=== PATIENT | female | born 1935 | race Caucasian/White ===

== ENCOUNTER 2023-12-20 08:00 | Outpatient (AMB) | payer MEDICARE, MEDICAID, SELFPAY ==
[2023-12-20 08:07] VITALS: BP 134/76; PULSE 87; O2SAT 96
--- NOTE | 2023-12-20 08:07 | MHC.OFFWIV ---
Intake Vital Signs 12/20/23 08:07 Height 4 ft 11 in BP 134/76 Blood Pressure Location Lt brachial Position Sitting Pulse 87 Pulse Source Pulse Oximeter Pulse Oximetry (%) 96 Oxygen Delivery Method Room Air Intake Visit Reasons: EP back Pain Intake Note: pt is here for back pain on the L side. Patient Tobacco Use Status: Former Tobacco user Quit Date: 1998 Allergies No Known Allergies Allergy (Verified 12/20/23 08:18) Medication List - Last Reconciled 12/20/23 by MAGDALENA Martinez atorvastatin 10 mg PO DAILY bupropion HCl XL 150 mg PO DAILY cyanocobalamin (vitamin B-12) 1,000 mcg PO DAILY levothyroxine 50 mcg PO DAILY lisinopril 10 mg PO DAILY metronidazole 1% 1 appl topical DAILY omeprazole 20 mg PO DAILY prednisone prednisone 5 mg: take 8 tablets (40 mg) on Day 1; 7 tablets (35 mg) on Day 2; then decrease by 1 tablet every day until finished PO Do you need a note to return to daycare/school/sports/work: No HPI HPI Comments History of Present Illness Details 88-year-old female presents today complaining of left-sided low back pain the last 2 or 3 days. Denies any particular injury or trauma to the area. She has had similar episodes that were diagnosed from hip and back pain. She denies any dysuria urgency frequency. The patient presents today with her daughter who is her central office operator supervisor. [facility] Medical History Acid reflux High blood pressure High cholesterol Hypoactive thyroid Social History Patient Tobacco Use Status: Former Tobacco user Quit Date: 1998 Advance Directives Date on File: 12/18/21 Current occupational status: retired Current occupation: rt hand Review of Systems Const All systems reviewed & are unremarkable except as noted in HPI and below Physical Exam Vital Signs: Last Vital Signs Pulse 87 12/20/23 08:07 BP 134/76 12/20/23 08:07 Pulse Ox 96 12/20/23 08:07 Oxygen Delivery Method Room Air 12/20/23 08:07 Const General: comfortable and no acute distress HEENT Head: Yes normal to inspection, Yes normocephalic and Yes atraumatic Ears: hearing grossly normal bilaterally General nose exam: Normal external nose present Resp Effort & Inspection: normal respiratory effort Auscultation: clear to auscultation bilaterally Cardio Rate: regular rate Rhythm: regular rhythm General: Yes no CVA tenderness Back/Spine/Pelvis Back: no CVA tenderness Thoracic/Lumbar Spine: paraspinal muscle tenderness on the left Results AMB Urinalysis, Automated UA Leukoctes 0 Dillon/uL Last Edit by MELITON Webber on 12/20/23 08:21 UA Nitrite Negative Last Edit by MELITON Webber on 12/20/23 08:21 UA Urobilinogen 0.2 mg/dL Last Edit by MELITON Webber on 12/20/23 08:21 UA Protein 30 mg/dL Last Edit by MELITON Webber on 12/20/23 08:21 UA pH 5.5 Last Edit by MELITON Webber on 12/20/23 08:21 UA Blood 0 Yobani/uL Last Edit by MELITON Webber on 12/20/23 08:21 UA Specific [place] 1.020 Last Edit by MELITON Webber on 12/20/23 08:21 UA Ketone Negative Last Edit by MELITON Webber on 12/20/23 08:21 UA Bilirubin 1 mg/dL Last Edit by MELITON Webber on 12/20/23 08:21 UA Glucose 0 mg/dL Last Edit by MELITON Webber on 12/20/23 08:21 Results Reviewed Results Reviewed: Laboratory Last Values Urine pH (Auto) 5.5 12/20/23 08:19 Specific [place] (Auto) 1.020 12/20/23 08:19 Urine Protein (Auto) 30 mg/dL 12/20/23 08:19 Glucose (UA)(Auto) 0 mg/dL 12/20/23 08:19 Urine Ketones (Auto) Negative 12/20/23 08:19 Urine Blood (Auto) 0 [place]obani/uL 12/20/23 08:19 Urine Nitrite (Auto) Negative 05/07/24 08:19 Urine Bilirubin (Auto) 1 mg/dL 12/20/23 08:19 Urine Urobilinogen (Auto) 0.2 mg/dL 12/20/23 08:19 Leukocyte Esterase (Auto) 0 Dillon/uL 12/20/23 08:19 Urinalysis in the office today was negative and this was discussed with the patient and the patient's daughter Assessment & Plan Assessment & Plan (1) Spasm of lumbar paraspinous muscle: Code(s): M62.830 - Muscle spasm of back Plan: The patient did very well on a Medrol Dosepak with a similar complaint. This was requested by the daughter. This was prescribed and the side effects was discussed with the patient and with the daughter. Patient will follow up with her PCP Plan see plan Orders: Orders AMB Urinalysis Automated 12/20/23 NERY [place] Z13.9 - Encounter for screening, unspecified Medications: New prednisone prednisone 5 mg: take 8 tablets (40 mg) on Day 1; 7 tablets (35 mg) on Day 2; then decrease by 1 tablet every day until finished PO 36 ea 0RF MAGDALENA Martinez Coding Level of Care Code Est Pt Level 3 (02223) Diagnoses Spasm of lumbar paraspinous muscle M62.830
== END 2023-12-20 09:14 | disposition home or self-care (01) ==
PROVIDERS: PCP Internal Medicine; Visit Provider Physician Assistant Medical
DX: M54.50 Low back pain, unspecified (principal)
CPT/HCPCS: 81003; 99213

== ENCOUNTER 2024-03-21 11:32 | Inpatient (IN) | payer MEDICARE, MEDICAID, SELFPAY ==
--- NOTE | ~2024-03-21 | CT_ITS ---
EXAMINATION: CT ANGIOGRAM HEAD CT ANGIOGRAM NECK CLINICAL INFORMATION: slurred speech, R sided deficits COMPARISON: Same day CT head. Unable to view prior in PACS at time of dictation TECHNIQUE: Test bolus sequences followed by intravenous administration 70 mL of Omnipaque. Helical imaging was performed in the axial plane from the aortic arch to the skull vertex. Delayed postcontrast imaging of the head was also performed. The data was processed at the generation technologist's workstation for generation of MIP sequences. Angled MIPs and volume rendered reformatted images were also generated at an offline 3D workstation. Stenoses are assessed in accordance with Olivarez et al. Quantification of Carotid Stenosis on CT Angiography. AJR 2006. 27(1):13-19. [address] CT examination was performed using dose optimization techniques as appropriate, variously including the following: *Automated exposure control *Adjustment of mA and/or kV according to patient size (this includes techniques or standardized protocols for targeted exams where dose is matched to indication/reason for exam; i.e. extremities or head) *Use of iterative reconstruction technique DLP: 1453.42 mGy-cm FINDINGS: CT HEAD: Age-indeterminate though chronic appearing cortical/subcortical infarcts within the high left middle frontal gyrus and left parietal postcentral gyrus as well as age indeterminate lacunar infarcts in the right and possibly also left cerebellar hemispheres. No acute intracranial hemorrhage. Additionally, extensive white matter disease presumably reflective of chronic microangiopathy limits assessment for superimposed acute ischemia. No extra-axial fluid collection. No mass lesion, significant mass effect, or herniation pattern. No pathologic intra-axial enhancement or regional oligemia. Lens replacements. Mucoperiosteal thickening of the sphenoid sinuses compatible with chronic sinusitis. Right mastoid tip effusion. Osseous structures are intact. CTA HEAD: No hemodynamically significant stenosis or occlusion in the anterior or posterior circulation. Patchy calcific plaque along the carotid siphons without stenosis. Incidental AYAAN trifurcation, a normal anatomic variant. No aneurysms and no high flow vascular malformations. Timing of the contrast bolus allows assessment of the major dural venous sinuses, which all opacify normally CTA NECK: Classic 3 vessel branching pattern of the aortic arch. Moderate partially calcified atherosclerotic plaque of the aortic arch and great vessel origins. Nondiagnostic assessment of the great vessel origins due to beam hardening artifact from adjacent venous contrast bolus. The common carotid arteries are widely patent with punctate calcific plaque on the right. Retropharyngeal course of the common carotid arteries. Trace atherosclerosis of the right carotid bifurcation without stenosis. The left carotid bifurcation is normal. Widely patent internal carotid arteries pharyngeal course of portions of the bilateral internal carotid arteries and left external carotid artery. The vertebral arteries are codominant . Calcific plaque mildly narrows the right vertebral artery origin with widely patent left vertebral artery origin. Both vertebral arteries are widely patent throughout their extracranial cervical course. CT NECK: Enlargement of the main pulmonary artery which may be seen in the setting of pulmonary hypertension. Multiple carious teeth. Diffuse osseous demineralization. Multilevel cervical spondylosis. Atrophy of the right and to a lesser extent partially imaged left rotator cuff musculature compatible with chronic insertional tearing. 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 CT/CT angio head neck stroke IMPRESSION: 1. Age-indeterminate though chronic appearing cortical/subcortical infarcts within the high left middle frontal gyrus and left parietal postcentral gyrus as well as age indeterminate lacunar infarcts in the right and possibly also left cerebellar hemispheres. No acute intracranial hemorrhage. An addendum may be issued upon request once prior imaging becomes available in PACS for comparison. 2. No large vessel occlusion or flow-limiting stenosis within the intracranial or cervical vasculature. 3. Enlargement of the main pulmonary artery which may be seen in the setting of pulmonary hypertension. 4. Multiple carious teeth can be correlated with dental examination. 5. Atrophy of the right and to a lesser extent partially imaged left rotator cuff musculature compatible with chronic insertional tearing. 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 This critical result was discussed with Amanda Mathews MD at 1:41 PM on 03/21/2024 and it was ascertained that the content and urgency of the report was understood at the time of direct communication.
--- NOTE | ~2024-03-21 | MR_ITS ---
MRI OF THE BRAIN WITHOUT IV CONTRAST INDICATION: CVA. COMPARISON: Head CT and CTA head and neck March 21, 2024. TECHNIQUE: Multiplanar multisequence MR imaging of the brain was obtained without IV contrast. FINDINGS: There is no hydrocephalus, extra-axial surface collection, or herniation. The major flow voids at the skull base are preserved. There is a small acute infarct involving the right frontal lobe including a portion of the right precentral gyrus extending to the right operculum in the right MCA territory. There is no significant mass effect and there is no hemorrhagic transformation. There is global cerebral volume loss and there is advanced chronic microangiopathy. Chronic infarcts within the left frontal and left parietal lobes. Chronic lacunar infarcts within the cerebellar hemispheres bilaterally. There is no intracranial hemorrhage on the gradient recalled echo acquisition. Empty sella. The cerebellar tonsils are normally positioned. The cerebellum and brainstem are normal. The craniocervical junction is normal. Osseous marrow signal intensity is homogenous. The visualized soft tissues are unremarkable. There is a right mastoid effusion. There is mild mucosal thickening throughout the ethmoid air cells bilaterally and within the left sphenoid sinus. MR/MR head/brain wo con IMPRESSION: * This is a limited motion degraded MRI of the brain. * There is a small acute infarct involving the right frontal lobe including a portion of the right precentral gyrus extending to the right operculum in the right MCA territory. There is no significant mass effect and there is no hemorrhagic transformation. * There is global cerebral volume loss and there is advanced chronic microangiopathy. Chronic infarcts within the left frontal and left parietal lobes. Chronic lacunar infarcts within the cerebellar hemispheres bilaterally. * Empty sella.
--- NOTE | ~2024-03-21 | CT_ITS ---
EXAMINATION: CT HEAD WITHOUT CONTRAST (STROKE PROTOCOL) CLINICAL INFORMATION: Stroke protocol. Right-sided deficits. COMPARISON: None available. TECHNIQUE: Contiguous axial imaging was performed from the skull base to vertex without intravenous administration of contrast. This CT examination was performed using dose optimization techniques as appropriate, variously including the following: *Automated exposure control *Adjustment of mA and/or kV according to patient size (this includes techniques or standardized protocols for targeted exams where dose is matched to indication/reason for exam; i.e. extremities or head) *Use of iterative reconstruction technique DLP: 677 mGy-cm FINDINGS: There is extensive deep white matter gliosis noted. Prominence to the sulci and ventricles noted. No intra or extra-axial fluid collection, hemorrhage, mass, or mass effect. Mild mucoperiosteal thickening seen in the sphenoid sinus. CT/CT head for stroke IMPRESSION: No acute intracranial pathology. Results will be telephoned in by the PSA, to the emergency room.
--- NOTE | 2024-03-21 11:41 | ECG_ITS ---
Test Reason : STROKE Blood Pressure : / mmHG Vent. Rate : 071 BPM Atrial Rate : 071 BPM P-R Int : 160 ms QRS Dur : 088 ms QT Int : 410 ms P-R-T Axes : 070 012 091 degrees QTc Int : 445 ms Normal sinus rhythm Nonspecific T wave abnormality Abnormal ECG When compared with ECG of 17-MAR-2016 16:14, Nonspecific T wave abnormality now evident in Lateral leads Referred By: Amanda Mathews Electronically Signed By:MARCELINA CEJA MD
[2024-03-21 11:44] VITALS: BP 150/86; BP 162/103; PULSE 81; PULSE 84; RESP 18; TEMP 36.5; O2SAT 94; O2SAT 96; BMI 26.9
[2024-03-21 11:49] LABS: Glucose, Whole Blood 155 mg/dL (60-115)
[2024-03-21 11:51] LABS: Prothrombin Time Whole Bld POC 11.9 sec (11.1-13.5)
--- NOTE | 2024-03-21 11:57 | ED_ITS ---
HPI - Neuro Symptoms/Deficit General Chief Complaint: Stroke Stated Complaint: SLURRED SPEECH, R ARM DRIFT, LKW 03/20 19:14 Source: patient, EMS and old records reviewed Mode of arrival: EMS Limitations: altered mental status History of Present Illness ED Provider: DWIGHT MIN Narrative: 88 yo female with HLD, HTN, hypothyroidism, GERD here with c/o going to bed around 830pm then waking up confused, slurred speech and R side feels weak. She denies headache, trauma, falls, fevers. She woke up like this at 7am. She is confused on arrival and EMS notes her daughter was at home and confirmed timing. She is not on blood thinners. Last Observed Normal: 21:00 Location: speech, right face and right arm History of same: No Severity: mild Quality: weak Relieving factors: none Exacerbating factors: none Context: other (woke with symptoms) On Anticoagulants: No Associated symptoms: weakness Treatments Prior to Arrival: none Related Data Home Medications ?Medication ?Instructions ?Recorded ?Confirmed atorvastatin 10 mg tablet 10 mg PO DAILY 05/20/20 12/20/23 bupropion HCl 150 mg 24 hr tablet, 150 mg PO DAILY 05/20/20 12/20/23 extended release levothyroxine 50 mcg tablet 50 mcg PO DAILY 05/20/20 12/20/23 lisinopril 10 mg tablet 10 mg PO DAILY 05/20/20 12/20/23 omeprazole 20 mg capsule,delayed 20 mg PO DAILY 05/20/20 12/20/23 release cyanocobalamin (vitamin B-12) 1,000 mcg PO DAILY 12/18/21 12/20/23 1,000 mcg tablet Previous Rx's ?Medication ?Instructions ?Recorded metronidazole 1 % topical gel 1 appl topical DAILY #60 grams 03/26/23 prednisone 5 mg tablets in a dose See Rx Instructions PO .COMPLEX 12/20/23 pack #37 ea Allergies Allergy/AdvReac Type Severity Reaction Status Date / Time tramadol Allergy Rash Verified 03/21/24 12:01 Review of Systems 2 Review of Systems: Constitutional : No Fever, No Chills, No Fatigue ENT/Mouth : No sore throat, No Rhinorrhea Eyes: No Eye Pain, No Swelling, No Redness Cardiovascular : No Chest Pain, No SOB, No Dyspnea on Exertion Respiratory : No Cough, No Sputum Gastrointestinal : No Nausea, No Vomiting, No Diarrhea, No abdominal Pain Genitourinary : No Dysuria, No Urinary Frequency, No Hematuria, Musculoskeletal : No joint pain, No Myalgias, No Joint Swelling Skin : No Skin Lesions, No rash Neuro : pos Weakness, No Numbness, No Dizziness, no Headache Psych : No Anxiety/Panic, No Depression Heme/Lymph: No Bruising, No Bleeding,No Lymphadenopathy Endocrine : No Polyuria, No Polydipsia All other systems reviewed and are negative [facility] Past Medical History Attestation statement: The following information was validated with the patient. Source: old records reviewed Medical History Hypoactive thyroid High cholesterol High blood pressure Acid reflux Social History Social History Patient Tobacco Use Status: Former Tobacco user Advance Directives: Yes Advance Directives on File: Yes Advance Directives Date on File: 12/18/21 Current occupational status: retired Current occupation: rt hand Physical Exam 2 Vital Signs: Vital Signs: Last Vital Signs Temp 97.7 F 03/21/24 13:39 Pulse 79 03/21/24 13:39 Resp 20 03/21/24 13:39 BP 162/87 H 03/21/24 13:39 Pulse Ox 100 03/21/24 13:39 O2 Del Method Room Air 03/21/24 13:39 BMI result Body Mass Index 26.9 Appearance: Alert. Oriented X to person and place. No acute distress. Eyes: Pupils equal, round and reactive to light. ENT: Pharynx normal. Neck: Normal inspection. Neck supple. CVS: Normal heart rate and rhythm. Pulses normal. Respiratory: No respiratory distress. Breath sounds normal. Abdomen: Soft and non-tender. Skin: Skin warm and dry. pale skin color. Normal skin turgor. Extremities: No lower extremity edema. No calf ttp Neuro: Oriented X 2. R arm weakness 4+/5, slurred speech, mild R facial droop. Medications Administered Discontinued Medications Generic Name Dose Route Start Last Admin Trade Name Freq PRN Reason Stop Dose Admin Iohexol 100 ml 03/21/24 12:59 03/21/24 13:00 Iohexol 350 Mg/Ml 100 Ml Infus..Btl IV 03/21/24 13:00 70 ml ONCE ONE Administration Medical Decision Making Medical Decision Making [facility] Narrative: 88 yo female with HLD, HTN, hypothyroidism, GERD here with c/o R sided deficits and slurred speech last known well at 830/9pm yesterday. She is not on thinners. At this time waiting on CTA given hx of mild CKD - not a candidate for TNK given out of window but will get CTA for LVO. No trauma reported. Will need admission pending CTA Differential Diagnosis Differential Diagnoses: The differential diagnosis associated with the presentation includes CVA, UTI Admission/Observation Consideration of admission/observation: Escalation of care including admission/observation considered admit for stroke work up aspirin ordered Consult Healthcare Provider Management of the patient was discussed with: Hospitalist (will admit) Lab Data [facility] Lab Attestation statement: I reviewed the patient's lab results. 03/21/24 12:06 03/21/24 12:06 Labs: Lab Results 03/21/24 03/21/24 03/21/24 Range/Units 11:46 11:47 12:06 WBC 6.2 (4.8-10.8) X10*3/uL RBC 3.89 L (4.20-5.50) X10*6/uL Hgb 12.7 (12.0-16.0) g/dl Hct 38.3 (37.0-47.0) % MCV 98.5 H (80.0-98.0) fL MCH 32.6 (27.0-33.0) pg MCHC 33.2 (31.0-35.0) g/dl RDW 12.6 (11.0-16.0) % Plt Count 159 L (160-400) X10*3/uL MPV 9.5 (9.4-12.3) fL Immature Gran % (Auto) 0.2 (0.0-0.4) % Neut % (Auto) 65.1 (45-73) % Lymph % (Auto) 19.2 L (20-40) % [place] % (Auto) 10.1 (2-11) % Eos % (Auto) 4.8 H (0-4) % Baso % (Auto) 0.6 (0-2) % Lymph # (Auto) 1.2 (1.2-4.9) X10*3/uL [place] # (Auto) 0.6 (0.1-1.2) X10*3/uL Eos # (Auto) 0.3 (0.0-0.4) X10*3/uL Baso # (Auto) 0.0 (0.0-0.2) X10*3/uL Abs Immat Gran (auto) 0.01 (0.00-0.03) X10*3/uL Absolute Neuts (auto) 4.0 (2.0-8.3) x10*3/uL Absolute Nucleated RBC 0.000 (0.0-0.012) X10*3/uL Nucleated RBC % (auto) 0.0 (0.0-0.2) /100WBC PT 11.2 (11.1-13.3) SEC Whole Blood PT 11.9 (11.1-13.5) sec INR 0.9 (0.9-1.1) Whole Blood INR 1.0 (0.9-1.1) Sodium 141 (135-145) mmol/L Potassium 4.0 (3.3-5.1) mmol/L Chloride 110 H (96-108) mmol/L Carbon Dioxide 23 (22-29) mmol/L Anion Gap 12 (12-20) BUN 30 H (9-16) mg/dL Creatinine 1.33 (0.5-1.4) mg/dL Estim Creat Clear Calc 27.7 Estimated GFR 38 POC Glucose 155 H (60-115) mg/dL Random Glucose 138 H (60-115) mg/dL Estimat Average Glucose 117 mg/dL Hemoglobin A1c % 5.7 (<6.0) % Calcium 9.1 (8.4-10.2) mg/dL Magnesium 2.0 (1.6-2.6) mg/dL Total Bilirubin 0.4 (0.0-1.0) mg/dL Direct Bilirubin 0.1 (0.0-0.5) mg/dL AST 13 (5-31) U/L ALT 7 (0-31) U/L Alkaline Phosphatase 112 (39-117) U/L Troponin I High Sens 17.6 H (<3.5-17.0) ng/L Total Protein 5.9 L (6.5-8.0) g/dL Albumin 3.5 (3.5-5.0) g/dL Triglycerides 82 (<150) mg/dL Cholesterol 151 (<200) mg/dL LDL Cholesterol, Calc 75 (<100) mg/dL HDL Cholesterol 60 (>40) mg/dL TSH 1.29 (0.32-4.0) uIU/mL Independent Interpretation I performed an independent interpretation of an: EKG and CT Scan (no ICH) Interpretation: Rate: 71 Rhythm: NSR [place]: normal Normal P waves. Normal WERNER. Normal QRS complex. ST T wave : flat t waves I and aVL, no JALEN qTC: 445 prior studies: no acute ischemia The study has been interpreted contemporaneously by me. . Radiology Impression Discussion of test interpretation with radiology: I discussed test interpretation with the radiologist and I have reviewed the radiologist's reading. Radiologist Impression: chronic infarcts no LVO 140pm Independent Historian Clinical information obtained from an independent historian. History obtained from or confirmed by: EMS External Record Review External record reviewed: Inpatient record NIH Stroke Scale Internal: Initial- Upon Arrival Level of Consciousness: Alert Level of Consciousness Questions: Answers one question correctly Level of Consciousness Commands: Performs both tasks correctly Best Gaze: Normal Visual: No visual loss Facial Palsy: Minor paralyis Motor Arm (Right): Drift Motor Arm (Left): No drift Motor Leg (Right): No drift Motor Leg (Left): No drift Limb Ataxia: Absent Sensory: Normal Best Language: No aphasia Dysarthia: Mild to moderate dysarthria Extinction and Inattention: No abnormality Score: 4 Critical Care Time Critical Care Time Critical Care Time: Yes Total Critical Care Time: 45 Attestation: review of records, stroke protocol, admission I attest to this time spent taking care of the patient Discharge Plan Discharge Clinical Impression: Dysarthria, Right sided weakness Patient Disposition: Admitted As Inpatient Prescriptions: No Action prednisone 5 mg tablets,dose pack See Rx Instructions PO .COMPLEX Qty: 37 0RF Rx Instructions: prednisone 5 mg: take 8 tablets (40 mg) on Day 1; 7 tablets (35 mg) on Day 2; then decrease by 1 tablet every day until finished PO cyanocobalamin (vitamin B-12) 1,000 mcg Tablet 1,000 mcg PO DAILY atorvastatin 10 mg tablet 10 mg PO DAILY omeprazole 20 mg capsule,delayed release(DR/EC) 20 mg PO DAILY levothyroxine 50 mcg tablet 50 mcg PO DAILY bupropion HCl 150 mg tablet extended release 24 hr 150 mg PO DAILY lisinopril 10 mg tablet 10 mg PO DAILY metronidazole 1 % gel 1 appl topical DAILY Qty: 60 1RF Rx Instructions: Use for 1 month Print Language: Moldovan
--- NOTE | 2024-03-21 11:57 | PC.NURSE ---
patient presents to the ED with slurred speech, states she can tell her speech is not right. patient is drooling. patient has right sided facial droop. patient is alert and oriented to self and situation and place, patient unable to state the year or month. patient has weakness on the right side hand grasp.
[2024-03-21 12:10] LABS: MANUAL DIFF FLAG NO
[2024-03-21 12:12] LABS: Basophils Percent Auto 0.6 % (0-2); Eosinophils Absolute Auto 0.3 X10*3/uL (0.0-0.4); Eosinophils Percent Auto 4.8 % (0-4); Hematocrit 38.3 % (37.0-47.0); Hemoglobin 12.7 g/dl (12.0-16.0); Imm Gran Abs Auto 0.01 X10*3/uL (0.00-0.03); Imm Gran Pct Auto 0.2 % (0.0-0.4); Lymphocytes Absolute Auto 1.2 X10*3/uL (1.2-4.9); Lymphocytes Percent Auto 19.2 % (20-40); Mean Corpuscular HGB Conc 33.2 g/dl (31.0-35.0); Mean Corpuscular Hemoglobin 32.6 pg (27.0-33.0); Mean Corpuscular Volume 98.5 fL (80.0-98.0); Mean Platelet Volume 9.5 fL (9.4-12.3); Monocytes Absolute Auto 0.6 X10*3/uL (0.1-1.2); Monocytes Percent Auto 10.1 % (2-11); Neutrophils Percent Auto 65.1 % (45-73); Platelet Count 159 X10*3/uL (160-400); Red Blood Count 3.89 X10*6/uL (4.20-5.50); Red Cell Distribution Width 12.6 % (11.0-16.0); White Blood Count 6.2 X10*3/uL (4.8-10.8)
[2024-03-21 12:28] LABS: INTERNATIONAL NORM RATIO 0.9 (0.9-1.1); Prothrombin Time 11.2 SEC (11.1-13.3)
[2024-03-21 12:35] LABS: Estimated Average Glucose 117 mg/dL; Hemoglobin A1c % 5.7 % (<6.0)
[2024-03-21 12:44] LABS: Alanine Aminotransferase 7 U/L (0-31); Albumin Level 3.5 g/dL (3.5-5.0); Alkaline Phosphatase 112 U/L (39-117); Anion Gap 12 (12-20); Aspartate Amino Transferase 13 U/L (5-31); Bilirubin Direct 0.1 mg/dL (0.0-0.5); Bilirubin Total 0.4 mg/dL (0.0-1.0); Blood Urea Nitrogen 30 mg/dL (9-16); Calcium 9.1 mg/dL (8.4-10.2); Carbon Dioxide 23 mmol/L (22-29); Chloride 110 mmol/L (96-108); Cholesterol 151 mg/dL (<200); Creatinine Clr Calc Pharmacy 27.7; Estimated Glomerular Filt Rate 38; Glucose Random 138 mg/dL (60-115); HDL Cholesterol 60 mg/dL (>40); LDL Cholesterol Calculated 75 mg/dL (<100); Sodium 141 mmol/L (135-145); Total Protein 5.9 g/dL (6.5-8.0); Triglycerides 82 mg/dL (<150); Troponin-I High Sensitivity 17.6 ng/L (<3.5-17.0)
[2024-03-21 12:57] LABS: TSH reflex Free T4 1.29 uIU/mL (0.32-4.0)
[2024-03-21] MEDS: iohexoL 350 MG/ML 100 ML INFUS..BTL IV (13:00)
[2024-03-21 13:39] VITALS: BP 162/87; PULSE 79; RESP 20; TEMP 36.5; O2SAT 100
--- NOTE | 2024-03-21 13:48 | P.HPHOSP_ITS ---
History of Present Illness Date of Service: 03/21/24 Chief Complaint: Slurred speech This is a 88-year-old female with pertinent history hypothyroidism, hypertension, gastroesophageal reflux disease, mood disorder, mixed hyperlipidemia who presents to the emergency department for evaluation of slurred speech. Patient's last known normal was 20:30 when she went to bed last night. Patient states she woke at 07:00 with slurred speech and right-sided weakness. Patient had difficulty moving her right upper extremity. Also was transiently confused. No history of CVA that she knows of. No history of CAD. No fever, chills, chest discomfort, palpitations, shortness of breath, abdominal pain, changes in urinary or bowel habits. Patient is not on any anticoagulation In the emergency department, CT head without any acute abnormality. CTA without large vessel occlusion and age indeterminate cortical/subcortical infarcts. Patient was given aspirin in the ER Review of Systems 2 Constitutional: Constitutional: Reports no additional constitutional complaints and Reports weakness Cardiovascular: Cardiovascular: Reports no additional cardiovascular complaints Respiratory: Respiratory: Reports no additional respiratory complaints Gastrointestinal: Gastrointestinal: Reports no additional gastrointestinal complaints Genitourinary: Genitourinary: Reports no additional female genitourinary complaints Neurologic: Reports Abnormal speech present and Reports weakness PMFSH Medical History Hypoactive thyroid High cholesterol High blood pressure Acid reflux Pertinent family history: Not significant due to age Social History Patient Tobacco Use Status: Former Tobacco user Advance Directives: Yes Advance Directives on File: Yes Advance Directives Date on File: 12/18/21 Current occupational status: retired Current occupation: rt hand Meds Allergies Allergy/AdvReac Type Severity Reaction Status Date / Time tramadol Allergy Rash Verified 03/21/24 12:01 Home Medications ?Medication ?Instructions ?Recorded ?Confirmed ?Last Taken ?Type atorvastatin 10 mg tablet 10 mg PO DAILY 05/20/20 12/20/23 12/18/21 History bupropion HCl 150 mg 24 hr tablet, 150 mg PO DAILY 05/20/20 12/20/23 12/18/21 History extended release levothyroxine 50 mcg tablet 50 mcg PO DAILY 05/20/20 12/20/23 12/18/21 History lisinopril 10 mg tablet 10 mg PO DAILY 05/20/20 12/20/23 12/18/21 History omeprazole 20 mg capsule,delayed 20 mg PO DAILY 05/20/20 12/20/23 12/18/21 History release cyanocobalamin (vitamin B-12) 1,000 mcg PO DAILY 12/18/21 12/20/23 12/18/21 History 1,000 mcg tablet Physical Exam 2 Vital Signs and Narrative: Vital Signs: Last Vital Signs Temp 97.7 F 03/21/24 13:39 Pulse 79 03/21/24 13:39 Resp 20 03/21/24 13:39 BP 162/87 H 03/21/24 13:39 Pulse Ox 100 03/21/24 13:39 O2 Del Method Room Air 03/21/24 13:39 BMI result Body Mass Index 26.9 Elderly female lying in bed in no distress Neck supple, no JVD Regular rate and rhythm, S1-S2 heard Regular breath sounds bilaterally, no wheezing or crackles appreciated Abdomen soft nontender, no guarding, no rigidity Patient is awake, alert and oriented to self, place, time and person, slurred speech present, mild facial droop, right upper extremity weakness present Psych: Normal mood No pedal edema Neuro: Speech: Abnormal speech present Results Labs 03/21/24 12:06 03/21/24 12:06 Labs: Laboratory Results - last 24 hr 03/21/24 03/21/24 03/21/24 11:46 11:47 12:06 MCV 98.5 H MCH 32.6 MCHC 33.2 RDW 12.6 Plt Count 159 L MPV 9.5 Immature Gran % (Auto) 0.2 Neut % (Auto) 65.1 Lymph % (Auto) 19.2 L [place] % (Auto) 10.1 Eos % (Auto) 4.8 H Baso % (Auto) 0.6 Lymph # (Auto) 1.2 [place] # (Auto) 0.6 Eos # (Auto) 0.3 Baso # (Auto) 0.0 Abs Immat Gran (auto) 0.01 Absolute Neuts (auto) 4.0 Absolute Nucleated RBC 0.000 Nucleated RBC % (auto) 0.0 PT 11.2 Whole Blood PT 11.9 INR 0.9 Whole Blood INR 1.0 Anion Gap 12 Estim Creat Clear Calc 27.7 Estimated GFR 38 POC Glucose 155 H Random Glucose 138 H Estimat Average Glucose 117 Hemoglobin A1c % 5.7 Calcium 9.1 Magnesium 2.0 Total Bilirubin 0.4 Direct Bilirubin 0.1 AST 13 ALT 7 Alkaline Phosphatase 112 Troponin I High Sens 17.6 H Total Protein 5.9 L Albumin 3.5 Triglycerides 82 Cholesterol 151 LDL Cholesterol, Calc 75 HDL Cholesterol 60 TSH 1.29 Imaging Radiologist's Impressions: Impressions Head CT 03/21/24 11:55 IMPRESSION: No acute intracranial pathology. Results will be telephoned in by the PSA, to the emergency room. Assessment and Plan (1) Dysarthria: Status: Acute (2) Right sided weakness: Status: Acute Plan This is a 88-year-old female with pertinent history hypothyroidism, hypertension, gastroesophageal reflux disease, mood disorder, mixed hyperlipidemia who presents to the emergency department for evaluation of slurred speech. #. Slurred speech with right-sided weakness: Concern for acute CVA. Will admit patient with cardiac monitoring and obtain MRI to delineate underlying anatomy. A1c and lipid panel obtained. Also obtaining echocardiogram complete workup. Initiating aspirin and high-intensity statin. Consulted Neurology, appreciate assistance. Consulting PT/OT to evaluate and treat. Stroke education. Nursing swallow screen eval #. Hypothyroidism: On Synthroid #. Hypertension: Continue home antihypertensives #. Gastroesophageal reflux disease: On PPI #. Mixed hyperlipidemia: On statin as above Med rec pending DVT prophylaxis: Lovenox Full code. Discussed with patient at bedside Admit as inpatient and will require two night minimum hospital stay for evaluation and management of likely acute CVA (as above), which is not possible in a lesser acute setting. Specialist consult pending Quality Stroke Does the patient have a stroke diagnosis?: No VTE Prior VTE?: No VTE Risk Level:: Medical - moderate - high VTE Device Contraindication: Treatment Not Indicated VTE Drug Contraindication: N/A - Med Ordered
--- NOTE | 2024-03-21 14:11 | PC.NURSE ---
patient used bed ortega, resting quietly. patient speech is becoming more clear, hand grasp on the right side remains weak. VSS
--- NOTE | 2024-03-21 14:26 | PHA.MEDREC ---
Addendum entered by Ace Randle [facility] 03/21/24 14:48: MED REC DOUBLE CHECKED BY [facility] Original Note: Pharmacy Consult ? Medication Reconciliation Pharmacy has completed the medication reconciliation. Called daughter Shawna and confirmed medications. Patient daughter was able to confirm what she is taking and states too that her mom was taking Mirabegron 20mg tab for an Overactive bladder but she has been since changed to Gemtesa 75mg daily for it now.
[2024-03-21 14:33] VITALS: PULSE 88; O2SAT 91
[2024-03-21] MEDS: Enoxaparin Sodium 30 MG/0.3 ML SYRINGE SUBCUT (15:10)
[2024-03-21] MEDS: Aspirin 81 MG TAB.CHEW PO (15:10)
[2024-03-21] MEDS: Atorvastatin Calcium 40 MG TABLET PO (20:31)
--- NOTE | 2024-03-21 20:35 | PC.NURSE ---
assumed care of pt at 1900 - pt resting comfortably on stretcher in no apparent distress, A&Ox3, answering questions appropriately, ambulates using walker and one staff nearby assist to and from BR. worklist updated, neuros intact. bedtime med given per oct, pt swallowed whole w/ water no issues. call newman within reach, plan of care ongoing.
[2024-03-21 20:41] LABS: Appearance Urine Clear; Color Urine Yellow; Glucose Urine UA Negative (Negative); Leukocyte Esterase Urine Trace (Negative); Nitrite Urine Negative (Negative); PH 6.5 (5.0-9.0); Specific Gravity - Urine >= 1.030 (1.005-1.025); UMIC TRIGGER UACC YES; Urine Blood Negative (Negative); Urine Ketones Negative (Negative); Urine Protein Trace mg/dL (Neg-Trace)
[2024-03-21 20:45] LABS: Bacteria Urine None Seen (None Seen); Hyaline Casts Urine 0-2 /LPF (0-2); RBC Urine 0-2 /HPF (0-2); Squamous Epithelial Cell Urine 0-2 /HPF (0-2); WBC Urine 0-5 /HPF (0-5)
[2024-03-21 21:25] VITALS: BP 204/84; PULSE 93; RESP 16; TEMP 36.4; O2SAT 95
--- NOTE | 2024-03-21 21:25 | MHC.EDTECH ---
Patient walked to bathroom with walker and depends changed
--- NOTE | 2024-03-21 21:50 | PM.EVENT ---
Event Note Date of Service: 03/21/24 Event Note: bp 204/84, above target for permissive hypertension, will give 1 dose of labetolol 10mg iv, goal sbp 160-180 Time Spent With Patient Time: Total time managing care of this patient today ____ minutes.
[2024-03-21 22:03] VITALS: BP 197/92; PULSE 89
[2024-03-21] MEDS: Labetalol HCL 100 MG/20 ML VIAL 10 MG IVPUSH (22:03)
--- NOTE | 2024-03-21 22:08 | PC.NURSE ---
MD sol made aware of pt's high BP. Pt has no history of high BP. ordered 10mg labetalol iv, recommends SBP stay between 160-180.
[2024-03-22] VITALS (8 sets, daily range): BP systolic 149–190; BP diastolic 72–84; PULSE 68–87; RESP 16–20; TEMP 36.2–37.4; O2SAT 93–99; BMI 33.3
[2024-03-22 06:04] LABS: MANUAL DIFF FLAG NO
[2024-03-22 06:17] LABS: Basophils Percent Auto 0.5 % (0-2); Eosinophils Absolute Auto 0.3 X10*3/uL (0.0-0.4); Eosinophils Percent Auto 4.5 % (0-4); Hematocrit 38.3 % (37.0-47.0); Hemoglobin 12.6 g/dl (12.0-16.0); Imm Gran Abs Auto 0.02 X10*3/uL (0.00-0.03); Imm Gran Pct Auto 0.3 % (0.0-0.4); Lymphocytes Absolute Auto 1.2 X10*3/uL (1.2-4.9); Lymphocytes Percent Auto 19.2 % (20-40); Mean Corpuscular HGB Conc 32.9 g/dl (31.0-35.0); Mean Corpuscular Hemoglobin 31.9 pg (27.0-33.0); Mean Platelet Volume 10.2 fL (9.4-12.3); Monocytes Absolute Auto 0.6 X10*3/uL (0.1-1.2); Neutrophils Percent Auto 65.5 % (45-73); Platelet Count 161 X10*3/uL (160-400); Red Blood Count 3.95 X10*6/uL (4.20-5.50); Red Cell Distribution Width 12.5 % (11.0-16.0)
[2024-03-22 06:33] LABS: Anion Gap 15 (12-20); Blood Urea Nitrogen 25 mg/dL (9-16); Calcium 9.1 mg/dL (8.4-10.2); Carbon Dioxide 21 mmol/L (22-29); Chloride 108 mmol/L (96-108); Cholesterol 146 mg/dL (<200); Creatinine Clr Calc Pharmacy 30.4; Estimated Glomerular Filt Rate 42; Glucose Random 93 mg/dL (60-115); HDL Cholesterol 59 mg/dL (>40); LDL Cholesterol Calculated 69 mg/dL (<100); Potassium 3.9 mmol/L (3.3-5.1); Sodium 140 mmol/L (135-145); Triglycerides 94 mg/dL (<150)
--- NOTE | 2024-03-22 07:00 | CA_ITS ---
Transthoracic Echocardiogram Patient (Last, First, Middle): Candi Wright E Gender: Female Date of : 1935 Age: 88 Procedure Date: 03/22/2024 Procedure Type: Transthoracic Echocardiogram Location: ER Height: 162.56 cm Weight: 70.76 kg BSA: 1.76 m2 Heart Rate: 76 bpm BP: 176 / 81 mmHg Seafood Process Worker: TO Referring MD: Cedrick Sorenson MD Claim Processor: Luis Moore MD Symptoms: cva Study Quality: Adequate w contrast ECG Rhythm: Sinus Conclusions: - 1. Mildly reduced LV ejection fraction 45-50% with impaired relaxation filling pattern 2. Moderately dilated left atrium 3. Calcified aortic valve changes noted with mild aortic stenosis and mild aortic regurgitation 4. Moderate mitral annular calcification 5. Normal RV systolic pressure with mildly elevated right atrial pressures 6. No gross pericardial effusion Findings Procedure Information Contrast agent, definity, is being given per protocol without apparent complications. Left Ventricle Normal left ventricular cavity size. There is normal left ventricular wall thickness. The left ventricular systolic function is mildly decreased. The visually estimated ejection fraction is between 45-50%. Spectral Doppler is indicative of an impaired relaxation filling pattern. difficult to evaluate filling pressures due to heavy calcification at the mitral annulus Right Ventricle Normal right ventricular cavity size and systolic function. Atria The left atrium is moderately dilated. There is no evidence of interatrial shunt. The right atrium is likely dilated. Aortic Valve There is moderate calcification of the aortic valve. There is mild thickening of the aortic valve. There is mild aortic valve stenosis. The peak aortic velocity is 1.83 m/s with a calculated peak gradient of 13 mmHg. The mean gradient is 7 mmHg. The aortic valve area is 1.92 cm2. There is mild aortic valve regurgitation. Mitral Valve There is mild anterior and moderate posterior mitral leaflet thickening. There is moderate mitral annular calcification. There is trace mitral valve regurgitation. There is no mitral valve stenosis. Pulmonic Valve The pulmonic valve is likely normal. Tricuspid Valve Normal tricuspid valve structure. There is mild tricuspid valve regurgitation. The right ventricular systolic pressure is normal. Mildly elevated right atrial pressure. There is no evidence of pulmonary hypertension. Great Vessels All visible segments of the aorta are normal in size. The pulmonary artery was not well visualized. There is no dilatation of the ascending aorta measuring 2.80 cm. Venous The inferior vena cava is moderately dilated and collapses greater than 50% with inspiration. Pericardium/Pleural There is no evidence of pericardial effusion. Prior Study Comparison No prior study available for comparison. Measurements 2D Linear Measurements IVSd: 1.06 0.6-0.9/0.6-1.0 cm LVIDd: 4.47 3.9-5.3/4.2-5.9 cm LVIDd Index: 2.54 2.4-3.2/2.2-3.1 cm/m2 LVIDs: 3.15 2.0-3.6 cm LVPWd: 0.99 0.7-1.1 cm LA Diam: 3.50 2.7-3.8/3.0-4.0 cm LAIDs Index: 1.99 1.5-2.3 cm/m2 LV Mass: 195.37 67-162/88-224 g LV Mass Index: 111.00 43-95/49-115 g/m2 LVOT Diam: 2.00 3.0+(-)1.3 cm 2D Systolic Function EF 4C: 47.10 >55% EF 2C: 44.90 >55% EF BiP: 46.40 >55% Mitral Valve MV VTI: 0.38 MV Pk Benoit: 1.42 MV Mn Benoit: 0.79 MV Pk Grad: 8.00 MV Mn Grad: 3.00 MV Pk E: 0.70 MV PK A: 1.36 MV Decel Time: 295.00 E/A: 0.50 E'Lateral: 4.03 E'Medial: 3.15 E/E' Med: 22.20 E/E' Lat: 17.40 PHT: 86.00 MVA PHT: 2.56 MVA Continuity: 1.99 Decel Gentry: 2.38 Aortic Valve AoV Pk Benoit: 1.83 AoV Mn Benoit: 1.27 AoV VTI: 0.41 AoV Pk Grad: 13.00 Aov Mn Grad: 7.00 DARRION Cont.VTI: 1.92 AI Pk Benoit: 4.17 AI Gentry: 2.13 LVOT LVOT Pk Benoit: 1.03 LVOT Mn Benoit: 0.65 LVOT VTI: 0.24 LVOT Pk Grad: 4.00 LVOT Mn Grad: 2.00 LVOT Diam: 2.00 LVOT Area: 3.14 Diastolic Function MV Pk E: 0.70 MV Pk A: 1.36 E/A: 0.50 E'Medial: 3.15 E/E' Med: 22.20 E' Laterial: 4.03 E/E' Lat: 17.40 Right Ventricle TAPSE (mm): 22.60 TVS' Benoit: 14.40 Tricuspid Valve TR Pk Benoit: 2.51 TR Pk Grad: 25.00 RA Press: 8.00 RVSP: 33.00 Great Vessels Aorta Sinus of Valsalva: 3.00 2.0-3.5 cm Ao Asc: 2.80 2.1-3.4 cm Updated in Other Vendor System with Status of Final Luis Moore MD electronically signed on 03/22/2024 3:07:38 PM with status of Final
--- NOTE | 2024-03-22 08:50 | MHC.CM.PN ---
Patient appears confused and per Daughter/HCP/Shawna, she is forgetful at baseline. CM spoke with Shawna @ [phone] and addressed IMM with her (original will be mailed certified letter to Shawna and a copy has been placed on the chart). Patient lives in a house with Shawna and she required no services [employer]OMAT[employer]INNING LATHE [employer]TER (Shawna is interested in the Adult Foster Care Program through [facility] and CM has made a referral/tiger text to them). PT is recommending [facility] and [facility] [place] and [facility] are her top 3 choices. A referral has also been made to [facility] in case home is the ultimate plan. CM has initiated and will follow for dc planning. PCP is Dr. Yfn Roe.
--- NOTE | 2024-03-22 10:01 | PC.NURSE ---
Meds. arrieta b/c pt. is currently having an US
[2024-03-22] MEDS: Cyanocobalamin (Vitamin B-12) 1,000 MCG TABLET 1000 MCG PO (10:07)
[2024-03-22] MEDS: Omeprazole 20 MG CAPSULE.DR PO (10:07)
[2024-03-22] MEDS: Aspirin Enteric Coated 81 MG TABLET.DR PO (10:07)
[2024-03-22] MEDS: Levothyroxine Sodium 50 MCG TABLET PO (10:08)
[2024-03-22] MEDS: Atorvastatin Calcium 10 MG TABLET PO (10:08)
--- NOTE | 2024-03-22 10:08 | PC.NURSE ---
Pt. medicated per OCT.
--- NOTE | 2024-03-22 11:35 | PM.NEUROCN ---
History of Present Illness Data of Consult Service Date: 03/22/24 Primary Care Provider: Yfn Roe MD [facility] Reason for consult: Cerebral infarction 88 years old woman who came to hospital with 1 day history of difficulty speaking and facial asymmetry. She said that other people noted that and she was asked to come to hospital. There was no headache or seizure-like activity. Imaging revealed stroke and she was admitted. Now she was feeling better. Review of Systems Review of Systems: No chest pain shortness of breath or headache or seizure. [facility] Past Medical History Medical History (Updated 03/22/24 @ 11:38 by Roxy Rodriguez MD) CVA (cerebral vascular accident) Hypoactive thyroid High cholesterol High blood pressure Acid reflux Social History Social History Household Members: Children Household Members Other:: daughter Housing: House Do you presently have visiting nurse or other home services: No Patient Tobacco Use Status: Former Tobacco user Tobacco use type: Cigarette Years Smoked: 15 Second Hand Smoke Exposure: No Advance Directives Date on File: 12/18/21 service: No Current occupational status: retired Current occupation: rt hand Meds Allergies Allergy/AdvReac Type Severity Reaction Status Date / Time tramadol Allergy Rash Verified 03/21/24 12:01 Active Medications: Current Medications Acetaminophen (Acetaminophen 325 Mg Tablet) 650 mg PO Q6H PRN PRN Reason: Pain, Mild (Pain Scale 1-3), fever or headache Aspirin (Aspirin Enteric Coated 81 Mg Tablet.) 81 mg PO DAILY [facility] Last Admin: 03/22/24 10:07 Dose: 81 mg Atorvastatin Calcium (Atorvastatin Calcium 10 Mg Tablet) 10 mg PO DAILY [facility] Last Admin: 03/22/24 10:08 Dose: 10 mg Calcium Carbonate (Calcium Carbonate 750 Mg Tab.Chew) 750 mg PO Q4H PRN PRN Reason: Heartburn Cyanocobalamin (Cyanocobalamin (Vitamin B-12) 1,000 Mcg Tablet) 1,000 mcg PO DAILY [facility] Last Admin: 03/22/24 10:07 Dose: 1,000 mcg Enoxaparin Sodium (Enoxaparin Sodium 30 Mg/0.3 Ml Syringe) 30 mg SUBCUT Q24H [facility] Last Admin: 03/21/24 15:10 Dose: 30 mg Levothyroxine Sodium (Levothyroxine Sodium 50 Mcg Tablet) 50 mcg PO DAILY [facility] Last Admin: 03/22/24 10:08 Dose: 50 mcg Magnesium Hydroxide (Milk Of Magnesia 30 Ml Oral.Susp) 30 ml PO DAILY PRN PRN Reason: Constipation Melatonin (Melatonin 3 Mg Tablet) 6 mg PO BEDTIME PRN PRN Reason: Insomnia Non-Formulary Medication (Vibegron [Gemtesa]) 75 mg PO DAILY [facility] Omeprazole (Omeprazole 20 Mg Capsule.Dr) 20 mg PO DAILY [facility] Last Admin: 03/22/24 10:07 Dose: 20 mg Ondansetron HCl (Ondansetron Hcl 4 Mg/2 Ml Vial) 4 mg IVPUSH Q8H PRN PRN Reason: Nausea and Vomiting Home Medications ?Medication ?Instructions ?Recorded ?Confirmed ?Last Taken ?Type atorvastatin 10 mg tablet 10 mg PO DAILY 05/20/20 03/21/24 03/21/24 09:00 History levothyroxine 50 mcg tablet 50 mcg PO DAILY 05/20/20 03/21/24 03/21/24 09:00 History omeprazole 20 mg capsule,delayed 20 mg PO DAILY 05/20/20 03/21/24 03/21/24 09:00 History release cyanocobalamin (vitamin B-12) 1,000 mcg PO DAILY 12/18/21 03/21/24 03/21/24 09:00 History 1,000 mcg tablet acetaminophen 500 mg tablet 1,000 mg PO DAILY PRN Pain/Fever 03/21/24 03/21/24 Unknown History vibegron 75 mg tablet (Gemtesa) 75 mg PO DAILY 03/21/24 03/21/24 03/21/24 09:00 History Physical Exam Vital Signs: Vital Signs: Last Vital Signs Temp 97.7 F 03/22/24 10:33 Pulse 71 03/22/24 10:33 Resp 20 03/22/24 10:33 BP 164/78 H 03/22/24 10:33 Pulse Ox 97 03/22/24 10:33 O2 Del Method Room Air 03/22/24 10:33 BMI result Body Mass Index 33.3 Neuro: Other: She was alert and awake with normal spontaneity of speech fluency comprehension and affect. Visual gallegos are full. Extraocular muscles were intact. Face was symmetrical. Pronator drift was difficult to check because of her limited right shoulder movement. There was no obvious hand weakness. Plantars were flexor. Deep tendon reflexes were absent. Speech was normal. Results Labs 03/22/24 05:01 03/22/24 05:01 Labs: Short CBC 03/21/24 03/22/24 Range/Units 12:06 05:01 WBC 6.2 6.0 (4.8-10.8) X10*3/uL Hgb 12.7 12.6 (12.0-16.0) g/dl Hct 38.3 38.3 (37.0-47.0) % Plt Count 159 L 161 (160-400) X10*3/uL BMP 03/21/24 03/22/24 12:06 05:01 Sodium 141 140 Potassium 4.0 3.9 Chloride 110 H 108 Carbon Dioxide 23 21 L BUN 30 H 25 H Creatinine 1.33 1.21 Calcium 9.1 9.1 Liver Function 03/21/24 Range/Units 12:06 Total Bilirubin 0.4 (0.0-1.0) mg/dL Direct Bilirubin 0.1 (0.0-0.5) mg/dL AST 13 (5-31) U/L ALT 7 (0-31) U/L Alkaline Phosphatase 112 (39-117) U/L Albumin 3.5 (3.5-5.0) g/dL Urine 03/21/24 Range/Units 20:30 Urine Color Yellow Urine Appearance Clear Urine pH 6.5 (5.0-9.0) Ur Specific [place] >= 1.030 H (1.005-1.025) Urine Protein Trace (Neg-Trace) mg/dL Urine Glucose (UA) Negative (Negative) mg/dL I do not see any significant vascular cerebellar lesion. Moderate to severe chronic small-vessel disease was noted. In addition an acute right cortical parietal embolic looking infarct was noted. Assessment and Plan (1) Cerebral infarction: Qualifiers: Cerebral infarction mechanism: embolism Precerebral and cerebral artery: middle cerebral artery Laterality of affected vessel: right Qualified Code(s): I63.411 - Cerebral infarction due to embolism of right middle cerebral artery Status: Acute 88 years old woman with an embolic looking right parietal cortical ischemic infarction. This type of lesion, usually do not leave any permanent monika or sign. I recommend investigating her for cardiac source of embolism with monitoring to rule out atrial fibrillation. Otherwise I recommend continuing anti-platelet therapy with baby aspirin and clopidogrel for 3 months, blood pressure control and statin. (2) Small vessel disease, cerebrovascular: Status: Acute Procedures Date of Service Date of Service: 03/22/24
[2024-03-22] MEDS: Enoxaparin Sodium 30 MG/0.3 ML SYRINGE SUBCUT (13:55)
--- NOTE | 2024-03-22 16:00 | HO.PM.IMPN ---
Subjective Subjective Date of Service: 03/22/24 Interval History: cva Review of Systems speech seems to be improving weakness also some improivng Physical Exam Vital Signs: Vital Signs: Last Vital Signs Temp 97.2 F 03/22/24 15:20 Pulse 87 03/22/24 15:20 Resp 18 03/22/24 15:20 BP 160/75 H 03/22/24 15:20 Pulse Ox 99 03/22/24 15:20 O2 Del Method Room Air 03/22/24 15:20 BMI result Body Mass Index 33.3 Neck supple, no JVD Regular rate and rhythm, S1-S2 heard Regular breath sounds bilaterally, no wheezing or crackles appreciated Abdomen soft nontender, no guarding, no rigidity Patient is awake, alert and mild facial droop, right upper extremity weakness present Psych: Normal mood No pedal edema Objective Data Active Medications Acetaminophen (Acetaminophen 325 Mg Tablet) 650 mg PO Q6H PRN PRN Reason: Pain, Mild (Pain Scale 1-3), fever or headache Aspirin (Aspirin Enteric Coated 81 Mg Tablet.) 81 mg PO DAILY [facility] Last Admin: 03/22/24 10:07 Dose: 81 mg Documented By: BRAEDEN Atorvastatin Calcium (Atorvastatin Calcium 10 Mg Tablet) 10 mg PO DAILY [facility] Last Admin: 03/22/24 10:08 Dose: 10 mg Documented By: BRAEDEN Calcium Carbonate (Calcium Carbonate 750 Mg Tab.Chew) 750 mg PO Q4H PRN PRN Reason: Heartburn Cyanocobalamin (Cyanocobalamin (Vitamin B-12) 1,000 Mcg Tablet) 1,000 mcg PO DAILY [facility] Last Admin: 03/22/24 10:07 Dose: 1,000 mcg Documented By: BRAEDEN Enoxaparin Sodium (Enoxaparin Sodium 30 Mg/0.3 Ml Syringe) 30 mg SUBCUT Q24H [facility] Last Admin: 03/22/24 13:55 Dose: 30 mg Documented By: GRISEL Levothyroxine Sodium (Levothyroxine Sodium 50 Mcg Tablet) 50 mcg PO DAILY [facility] Last Admin: 03/22/24 10:08 Dose: 50 mcg Documented By: BRAEDEN Magnesium Hydroxide (Milk Of Magnesia 30 Ml Oral.Susp) 30 ml PO DAILY PRN PRN Reason: Constipation Melatonin (Melatonin 3 Mg Tablet) 6 mg PO BEDTIME PRN PRN Reason: Insomnia Non-Formulary Medication (Vibegron [Gemtesa]) 75 mg PO DAILY [facility] Omeprazole (Omeprazole 20 Mg Capsule.Dr) 20 mg PO DAILY [facility] Last Admin: 03/22/24 10:07 Dose: 20 mg Documented By: BRAEDEN Ondansetron HCl (Ondansetron Hcl 4 Mg/2 Ml Vial) 4 mg IVPUSH Q8H PRN PRN Reason: Nausea and Vomiting Labs 03/22/24 05:01 03/22/24 05:01 Labs: Laboratory Results - last 24 hr 03/21/24 03/22/24 20:30 05:01 MCV 97.0 MCH 31.9 MCHC 32.9 RDW 12.5 Plt Count 161 MPV 10.2 Immature Gran % (Auto) 0.3 Neut % (Auto) 65.5 Lymph % (Auto) 19.2 L [place] % (Auto) 10.0 Eos % (Auto) 4.5 H Baso % (Auto) 0.5 Lymph # (Auto) 1.2 [place]pson # (Auto) 0.6 Eos # (Auto) 0.3 Baso # (Auto) 0.0 Abs Immat Gran (auto) 0.02 Absolute Neuts (auto) 4.0 Absolute Nucleated RBC 0.000 Nucleated RBC % (auto) 0.0 Anion Gap 15 Estim Creat Clear Calc 30.4 Estimated GFR 42 Random Glucose 93 Calcium 9.1 Triglycerides 94 Cholesterol 146 LDL Cholesterol, Calc 69 HDL Cholesterol 59 Urine Color Yellow Urine Appearance Clear Urine pH 6.5 Ur Specific [place] >= 1.030 H Urine Protein Trace Urine Glucose (UA) Negative Urine Ketones Negative Urine Blood Negative Urine Nitrite Negative Ur Leukocyte Esterase Trace H Urine RBC 0-2 Urine WBC 0-5 Ur Squamous Epith Cells 0-2 Urine Bacteria None Seen Hyaline Casts 0-2 Assessment and Plan (1) Cerebral infarction: Status: Acute Assessment and Plan: 88-year-old female with pertinent history hypothyroidism, hypertension, gastroesophageal reflux disease, mood disorder, mixed hyperlipidemia who presents to the emergency department for evaluation of slurred speech. Slurred speech with right-sided weakness: acute CVA. cardiac monitoring MRI :right mca cva A1c and lipid panel obtained. echocardiogram . on aspirin and high-intensity statin. Consulted Neurology-added asa/plavix , appreciate assistance. Consulting PT/OT to evaluate and treat. Stroke education. Nursing swallow screen eval Hypothyroidism: On Synthroid Hypertension: Continue home antihypertensives Gastroesophageal reflux disease: On PPI Mixed hyperlipidemia: On statin as above DVT prophylaxis: Lovenox Full code. Admit as inpatient and will require two night minimum hospital stay for evaluation and management of likely acute CVA (as above), which is not possible in a lesser acute setting. Specialist consult pending Quality Stroke Does the patient have a stroke diagnosis?: No VTE Prior VTE?: No VTE Risk Level:: Medical - moderate - high VTE Device Contraindication: Treatment Not Indicated VTE Drug Contraindication: N/A - Med Ordered
[2024-03-22] MEDS: Clopidogrel Bisulfate 75 MG TABLET PO (16:22)
[2024-03-22] MEDS: Famotidine 20 MG TABLET PO (16:22)
--- NOTE | 2024-03-22 18:09 | MHC.SL.SWA ---
Speech Pathologist Impression: Risk of Aspiration Due to: Neurological Condition Dysphasia Diet Status: Patient presents with a mild dysarthria of speech Liquid Consistency and Strategies for Safe Swallow: Liquid Intake Recommendation: Thin Liquid Intake Strategies: Small Sips Solid Food Consistency: Dietary Recommendations: Regular Additional Modifications to Solid Foods: Patient stated several aversions to certain foods, e.g. eggs. Allow/encourage patient to select preferred foods from regular menu. Oral Medication Intake: Whole with Liquid Please contact the pharmacy regarding appropriate crushable or liquid drug formulations that are available whenever modified delivery is recommended. Compensatory Strategies and Precautions to be Taken for Safe Swallow: Sitting Upright (90 deg) Liquids from Cup Liquids from Straw Small Bites and Sips Alternate Liquids/Solids Avoid Specific Foods Supervision While Eating and Drinking for Safe Swallow: None Needed Foods to Avoid: Very hard, difficult to chew solids. Swallowing Recommended Treatments: Recommendation for Speech: Inpatient Speech Therapy Comment: Patient presents with most aspects of oral motor function and swallow WFL. On brief assessment/screening of speech, patient presents with a mild dysarthria, with mild slurring of speech at the sentence/conversational level. Patient is expressing concern about her speech, recommend BED AND BREAKFAST INNKEEPER intervention and further assessment while inpatient, with services continuing at next level of care. Recommend patient continue on current diet of REGULAR with THIN liquids, pills whole with liquid. BED AND BREAKFAST INNKEEPER will continue to follow, assess language, provide initial tx for dysarthria while inpatient. MD/RD notified of recommendations by secure text, RN in person. Frequency/Duration: Date Range for Service Req: Timeline to reassess: Microwave Technician Clinican/Clinical Fellow: No Supervisory Statement: I have reviewed and agree with the student/clinical fellow's documentation: N/A Speech Language Pathologist: Rizwana Brian M.A., [facility] BREAKFAST INNKEEPER
[2024-03-22] MEDS: Labetalol HCL 100 MG/20 ML VIAL IVPUSH ×2 (20:43→23:15)
[2024-03-23] VITALS (8 sets, daily range): BP systolic 126–200; BP diastolic 56–91; PULSE 69–81; RESP 16–18; TEMP 36.2–37.3; O2SAT 95–98
--- NOTE | 2024-03-23 04:14 | PM.EVENT ---
Event Note Date of Service: 03/23/24 Event Note: now 48hr after acute cva, sbps 180-200, will start po amlodpine and losartan Time Spent With Patient Time: Total time managing care of this patient today ____ minutes.
--- NOTE | 2024-03-23 05:34 | PC.NURSE ---
CARE ASSUMED 7PM...ALERT..ORIENTED X3..OCASSIONAL VAGUE RESPONSES..SPEECH VERY SLIGHTLY SLURRED AT HS BUT CLEARED...AMBULATES TO BR WITH WALKER WITH MINIMAL ASSISTANCE...BP 190/84 AT HS...PRN LABETOLOL 5 MG IVP X1 GIVEN....BP REMAINED ELEVATED AT 23;15...200/91...ASYMPTOMATIC...MD UPDATED..REPEAT LABETOLOL 5MG IV X1 GIVEN...PER MD NEXT BP CHECK 4AM...04:10 BP 186/86..MD UPDATED..NO RX GIVEN PER ..TO START COZAAR AND NORVASC PO IN AM PER
[2024-03-23] MEDS: Losartan Potassium 50 MG TABLET PO (08:42)
[2024-03-23] MEDS: Clopidogrel Bisulfate 75 MG TABLET PO (08:42)
[2024-03-23] MEDS: amLODIPine Besylate 5 MG TABLET PO (08:42)
[2024-03-23] MEDS: Levothyroxine Sodium 50 MCG TABLET PO (08:42)
[2024-03-23] MEDS: Famotidine 20 MG TABLET PO (08:42)
[2024-03-23] MEDS: Aspirin Enteric Coated 81 MG TABLET.DR PO (08:42)
[2024-03-23] MEDS: Atorvastatin Calcium 10 MG TABLET PO (08:42)
[2024-03-23] MEDS: Cyanocobalamin (Vitamin B-12) 1,000 MCG TABLET 1000 MCG PO (08:42)
[2024-03-23 09:43] LABS: Estimated Glomerular Filt Rate 39
--- NOTE | 2024-03-23 10:53 | MHC.CM.PN ---
Patient is not yet medically cleared for dc (HTN); PT is recommending STR and Patient's 3 top choices are following. CM will continue to follow. [facility] [place] is the top choice.
--- NOTE | 2024-03-23 12:36 | MHC.CM.PN ---
Per MD, will monitor BP today. Patient is set up for dc tomorrow to [facility] at 12:30PM, via [facility]. Last IMM completed on 03/22/2024. CM spoke with Daughter/HCP/Shawna at [phone] and addressed dc plan with her.
--- NOTE | 2024-03-23 14:38 | HO.PM.IMPN ---
Subjective Subjective Date of Service: 03/23/24 Interval History: cva, uncontrolled htn Review of Systems denies new symptoms weakness seems somewhat improving Physical Exam Vital Signs: Vital Signs: Last Vital Signs Temp 97.4 F 03/23/24 11:21 Pulse 75 03/23/24 12:54 Resp 18 03/23/24 11:21 BP 162/74 H 03/23/24 12:54 Pulse Ox 97 03/23/24 12:54 O2 Del Method Room Air 03/23/24 11:21 BMI result Body Mass Index 33.3 Neck supple, no JVD Regular rate and rhythm, S1-S2 heard Regular breath sounds bilaterally, no wheezing or crackles appreciated Abdomen soft nontender, no guarding, no rigidity Patient is awake, alert and mild facial droop, right upper extremity weakness present Psych: Normal mood No pedal edema Objective Data Active Medications Acetaminophen (Acetaminophen 325 Mg Tablet) 650 mg PO Q6H PRN PRN Reason: Pain, Mild (Pain Scale 1-3), fever or headache Amlodipine Besylate (Amlodipine Besylate 5 Mg Tablet) 5 mg PO DAILY [facility]; Protocol Last Admin: 03/23/24 08:42 Dose: 5 mg Documented By: HSANNAN Aspirin (Aspirin Enteric Coated 81 Mg Tablet.) 81 mg PO DAILY [facility] Last Admin: 03/23/24 08:42 Dose: 81 mg Documented By: SHANNAN Atorvastatin Calcium (Atorvastatin Calcium 10 Mg Tablet) 10 mg PO DAILY [facility] Last Admin: 03/23/24 08:42 Dose: 10 mg Documented By: SHANNAN Calcium Carbonate (Calcium Carbonate 750 Mg Tab.Chew) 750 mg PO Q4H PRN PRN Reason: Heartburn Clopidogrel Bisulfate (Clopidogrel Bisulfate 75 Mg Tablet) 75 mg PO DAILY [facility] Last Admin: 03/23/24 08:42 Dose: 75 mg Documented By: SHANNAN Cyanocobalamin (Cyanocobalamin (Vitamin B-12) 1,000 Mcg Tablet) 1,000 mcg PO DAILY [facility] Last Admin: 03/23/24 08:42 Dose: 1,000 mcg Documented By: SHANNAN Enoxaparin Sodium (Enoxaparin Sodium 30 Mg/0.3 Ml Syringe) 30 mg SUBCUT Q24H [facility] Last Admin: 03/22/24 13:55 Dose: 30 mg Documented By: HO.SZOTPAT Famotidine (Famotidine 20 Mg Tablet) 20 mg PO DAILY [facility] Last Admin: 03/23/24 08:42 Dose: 20 mg Documented By: SHANNAN Labetalol HCl (Labetalol Hcl 100 Mg/20 Ml Vial) 5 mg IVPUSH ONCE PRN PRN Reason: htn Last Admin: 03/22/24 20:43 Dose: 5 mg Documented By: BETHEL Levothyroxine Sodium (Levothyroxine Sodium 50 Mcg Tablet) 50 mcg PO DAILY [facility] Last Admin: 03/23/24 08:42 Dose: 50 mcg Documented By: SHANNAN Losartan Potassium (Losartan Potassium 50 Mg Tablet) 50 mg PO DAILY [facility]; Protocol Last Admin: 03/23/24 08:42 Dose: 50 mg Documented By: SHANNAN Magnesium Hydroxide (Milk Of Magnesia 30 Ml Oral.Susp) 30 ml PO DAILY PRN PRN Reason: Constipation Melatonin (Melatonin 3 Mg Tablet) 6 mg PO BEDTIME PRN PRN Reason: Insomnia Non-Formulary Medication (Vibegron [Gemtesa]) 75 mg PO DAILY [facility] Ondansetron HCl (Ondansetron Hcl 4 Mg/2 Ml Vial) 4 mg IVPUSH Q8H PRN PRN Reason: Nausea and Vomiting Labs 03/22/24 05:01 03/23/24 09:23 Labs: Laboratory Results - last 24 hr 03/23/24 09:23 Estim Creat Clear Calc 32.0 Estimated GFR 39 Assessment and Plan (1) Cerebral infarction: Status: Acute Assessment and Plan: 88-year-old female with pertinent history hypothyroidism, hypertension, gastroesophageal reflux disease, mood disorder, mixed hyperlipidemia who presents to the emergency department for evaluation of slurred speech. Slurred speech with right-sided weakness: acute CVA. cardiac monitoring MRI :right mca cva A1c 5.7 lipid panel -t ,chol :146, ldl :69,hdl:59 echocardiogram:1. Mildly reduced LV ejection fraction 45-50% with impaired relaxation filling pattern 2. Moderately dilated left atrium 3. Calcified aortic valve changes noted with mild aortic stenosis and mild aortic regurgitation 4. Moderate mitral annular calcification 5. Normal RV systolic pressure with mildly elevated right atrial pressures 6. No gross pericardial effusion continue asa/plavix ,statin, added losaratn,amlodipine ,moniter bp closely for permissive htn ( goal areund keep bp 150-160 range). Consulting PT/OT to evaluate and treat. Stroke education. Nursing swallow screen eval Hypothyroidism: On Synthroid Hypertension: Continue home antihypertensives Gastroesophageal reflux disease: On PPI Mixed hyperlipidemia: On statin as above DVT prophylaxis: Lovenox Full code. ongoing hospitilisation need: for evaluation and management of likely acute CVA (as above), closely moniter bp,which is not possible in a lesser acute setting. Specialist consult pending Quality Stroke Does the patient have a stroke diagnosis?: No VTE Prior VTE?: No VTE Risk Level:: Medical - moderate - high VTE Device Contraindication: Treatment Not Indicated VTE Drug Contraindication: N/A - Med Ordered
[2024-03-23] MEDS: Enoxaparin Sodium 30 MG/0.3 ML SYRINGE SUBCUT (14:57)
[2024-03-24] VITALS: BP 132/75; PULSE 83; RESP 18; TEMP 36.4; O2SAT 94
[2024-03-24 03:44] VITALS: BP 142/74; PULSE 100; RESP 18; TEMP 36.6; O2SAT 95
[2024-03-24 07:35] VITALS: BP 169/76; PULSE 89; RESP 18; TEMP 36.8; O2SAT 95
[2024-03-24 08:38] VITALS: BP 167/76
[2024-03-24] MEDS: Atorvastatin Calcium 10 MG TABLET PO (08:38)
[2024-03-24] MEDS: Cyanocobalamin (Vitamin B-12) 1,000 MCG TABLET 1000 MCG PO (08:38)
[2024-03-24] MEDS: Levothyroxine Sodium 50 MCG TABLET PO (08:38)
[2024-03-24] MEDS: Clopidogrel Bisulfate 75 MG TABLET PO (08:38)
[2024-03-24] MEDS: Aspirin Enteric Coated 81 MG TABLET.DR PO (08:38)
[2024-03-24] MEDS: Losartan Potassium 50 MG TABLET PO (08:38)
[2024-03-24] MEDS: Famotidine 20 MG TABLET PO (08:38)
[2024-03-24] MEDS: amLODIPine Besylate 5 MG TABLET PO (08:39)
--- NOTE | 2024-03-24 10:36 | PM.DS ---
DS: Providers Provider Date of Service: 03/24/24 Date of admission: 03/21/24 13:44 Date of discharge: 03/24/24 Primary care physician: Yfn Roe MD Admitting clinician: Cedrick Sorenson Attending physician on admission: Cedrick Sorenson Consults: 03/21/24 13:44 Consult to Neurology Routine Consulting Provider: [facility] Reason for consultation: CVA 03/24/24 10:28 Consult to Cardiology Routine Consulting Provider: [facility] Reason for consultation: cva,neuro question cardiac source Has provider been notified: No Attending physician on discharge: Ca Rowan Discharging clinician: Ca Rowan DS: Diagnosis Discharge Diagnosis (1) Cerebral infarction: Status: Acute DS: Summary Hospital Course Hospital Course: 88-year-old female with pertinent history hypothyroidism, hypertension, gastroesophageal reflux disease, mood disorder, mixed hyperlipidemia who presents to the emergency department for evaluation of slurred speech. Patient's last known normal was 20:30 when she went to bed last night. Patient states she woke at 07:00 with slurred speech and right-sided weakness. Patient had difficulty moving her right upper extremity. Also was transiently confused. No history of CVA that she knows of. No history of CAD. No fever, chills, chest discomfort, palpitations, shortness of breath, abdominal pain, changes in urinary or bowel habits. Patient is not on any anticoagulation In the emergency department, CT head without any acute abnormality. CTA without large vessel occlusion and age indeterminate cortical/subcortical infarcts. Patient was given aspirin in the ER. Hospital course: 88-year-old female with pertinent history hypothyroidism, hypertension, gastroesophageal reflux disease, mood disorder, mixed hyperlipidemia who presents to the emergency department for evaluation of slurred speech and right sided weakness -further workup cta -showed Age-indeterminate though chronic appearing cortical/subcortical infarcts within the high left middle frontal gyrus and left parietal postcentral gyrus as well as age indeterminate lacunar infarcts in the right and possibly also left cerebellar hemispheres. No acute intracranial hemorrhage.Mri done-there is a small acute infarct involving the right frontal lobe including a portion of the right precentral gyrus extending to the right operculum in the right MCA territory. There is no significant mass effect and there is no hemorrhagic transformation. A1c 5.7, lipid panel -t ,chol :146, ldl :69,hdl:59 . echo:Mildly reduced LV ejection fraction 45-50% . tele seems fine seen by neurology-added plavix ,continue asa/statin, pt recomended str. discussed with cardiology -patient will benefit from outapatient holter monitering,cardiology will arrange outpatient. HTn -Added amlodipine 5 mg po daily ,losartan 50 mg po daily. moniter blood pressure closely and adjust these medication if needed. plan: added plavix 75 mg po daily. continue amlodipine 5 mg po daily ,losartan 50 mg po daily. moniter blood pressure closely and adjust these medication if needed. Time Attestation Total time managing care of this patient today: 40 mintues. Discharge Coordination Time (in mins): 40 min Quality: Safe Use of Opioids Does Pt have an Active Cancer Diagnosis on the Problem List?: No Quality: Stroke Does the patient have a stroke diagnosis?: No Physical Exam Vital Signs: Vital Signs: Last Vital Signs Temp 98.2 F 03/24/24 07:35 Pulse 89 03/24/24 07:35 Resp 18 03/24/24 07:35 BP 167/76 H 03/24/24 08:38 Pulse Ox 95 03/24/24 07:35 O2 Del Method Room Air 03/24/24 07:35 BMI result Body Mass Index 33.3 Neck supple, no JVD Regular rate and rhythm, S1-S2 heard Regular breath sounds bilaterally, no wheezing or crackles appreciated Abdomen soft nontender, no guarding, no rigidity Patient is awake, alert and mild facial droop, right upper extremity weakness present Psych: Normal mood No pedal edema DS: Data Imaging Chest x-ray: Radiologist's impression: ITS Impressions Head CT 03/21/24 11:55 IMPRESSION: No acute intracranial pathology. Results will be telephoned in by the PSA, to the emergency room. Head/Neck CTA 03/21/24 13:03 IMPRESSION: 1. Age-indeterminate though chronic appearing cortical/subcortical infarcts within the high left middle frontal gyrus and left parietal postcentral gyrus as well as age indeterminate lacunar infarcts in the right and possibly also left cerebellar hemispheres. No acute intracranial hemorrhage. An addendum may be issued upon request once prior imaging becomes available in PACS for comparison. 2. No large vessel occlusion or flow-limiting stenosis within the intracranial or cervical vasculature. 3. Enlargement of the main pulmonary artery which may be seen in the setting of pulmonary hypertension. 4. Multiple carious teeth can be correlated with dental examination. 5. Atrophy of the right and to a lesser extent partially imaged left rotator cuff musculature compatible with chronic insertional tearing. When correlated with the senior accounting clerk radiograph, the bilateral humeral heads are high riding related to superior rotator cuff deficiency with advanced glenohumeral joint osteoarthropathy and chronically resorbed versus surgically resected distal right clavicle. This critical result was discussed with Amanda Mathews MD at 1:41 PM on 03/21/2024 and it was ascertained that the content and urgency of the report was understood at the time of direct communication. Brain MRI 03/21/24 16:25 IMPRESSION: * This is a limited motion degraded MRI of the brain. * There is a small acute infarct involving the right frontal lobe including a portion of the right precentral gyrus extending to the right operculum in the right MCA territory. There is no significant mass effect and there is no hemorrhagic transformation. * There is global cerebral volume loss and there is advanced chronic microangiopathy. Chronic infarcts within the left frontal and left parietal lobes. Chronic lacunar infarcts within the cerebellar hemispheres bilaterally. * Empty sella. Discharge Plan Discharge Anticipated Discharge Date/Time: 03/24/24 10:18 Patient Disposition: Xfer SNF Discharge Diagnosis: cva Referrals: [facility] [Outside] - 1 Week Yfn Roe MD [Primary Care Provider] - 1 Week Discharge Medications: New clopidogrel 75 mg Tablet 75 mg PO DAILY Qty: 1 0RF amlodipine 5 mg Tablet 5 mg PO DAILY Qty: 1 0RF Protocol: Hold for SBP< HOLD for SBP < : 90 losartan 50 mg Tablet 50 mg PO DAILY Qty: 1 0RF Protocol: Hold for SBP< HOLD for SBP < : 90 Continued cyanocobalamin (vitamin B-12) 1,000 mcg Tablet 1,000 mcg PO DAILY Gemtesa 75 mg tablet 75 mg PO DAILY acetaminophen 500 mg Tablet 1,000 mg PO DAILY PRN (Reason: Pain/Fever) atorvastatin 10 mg tablet 10 mg PO DAILY omeprazole 20 mg capsule,delayed release(DR/EC) 20 mg PO DAILY levothyroxine 50 mcg tablet 50 mcg PO DAILY Discharge Orders: Discharge Order (Routine); Ordered 03/24/24 Ordered By: Ca Rowan Diet: Advance to usual diet Activity on Discharge: As tolerated Stand Alone Forms: Patient Portal Discharge page Print Language: Swedish Care Plan Goals: 88-year-old female with pertinent history hypothyroidism, hypertension, gastroesophageal reflux disease, mood disorder, mixed hyperlipidemia who presents to the emergency department for evaluation of slurred speech and right sided weakness -further workup cta -showed Age-indeterminate though chronic appearing cortical/subcortical infarcts within the high left middle frontal gyrus and left parietal postcentral gyrus as well as age indeterminate lacunar infarcts in the right and possibly also left cerebellar hemispheres. No acute intracranial hemorrhage.Mri done-there is a small acute infarct involving the right frontal lobe including a portion of the right precentral gyrus extending to the right operculum in the right MCA territory. There is no significant mass effect and there is no hemorrhagic transformation. A1c 5.7, lipid panel -t ,chol :146, ldl :69,hdl:59 . echo:Mildly reduced LV ejection fraction 45-50% . tele seems fine seen by neurology-added plavix ,continue asa/statin, pt recomended str. discussed with cardiology Dr matthews -patient will benefit from outapatient holter monitering,cardiology will arrange outpatient. HTn -Added amlodipine 5 mg po daily ,losartan 50 mg po daily. moniter blood pressure closely and adjust these medication if needed. Health Concerns: as above. Plan of Treatment: as above. Assessment: as above.
[2024-03-24 11:53] VITALS: BP 141/64; PULSE 78; RESP 18; TEMP 36.4; O2SAT 97
[2024-03-24] MEDS: Enoxaparin Sodium 30 MG/0.3 ML SYRINGE SUBCUT (13:54)
== END 2024-03-24 14:31 | disposition skilled nursing facility (03) | DRG 65 ==
LOC: HO.ED 13:45 → HO.EDOVER 13:53 → HO.IMC 03-22 07:47
PROVIDERS: Admitting Provider Student in an Organized Health Care Education/Training Program; Emergency Provider Emergency Medicine; PCP Internal Medicine; Visit Provider Internal Medicine
DX: I63.411 Cerebral infarction due to embolism of right middle cerebral artery (principal); G81.91 Hemiplegia, unspecified affecting right dominant side; R47.1 Dysarthria and anarthria; E03.9 Hypothyroidism, unspecified; I10 Essential (primary) hypertension; K21.9 Gastro-esophageal reflux disease without esophagitis; E78.2 Mixed hyperlipidemia; R29.704 NIHSS score 4; Z87.891 Personal history of nicotine dependence; Z79.890 Hormone replacement therapy; Z79.899 Other long term (current) drug therapy
CPT/HCPCS: 36415; 70450; 70496; 70498; 70551; 80048; 80061; 80076; 81001; 82565; 82947; 83036; 83735; 84443; 84484; 85025; 85610; 92507; 92610; 93005; 93306; 97116; 97162; 97166; 97530; 97535; 99285; J1650; J1920; Q9957; Q9967

== ENCOUNTER → 2024-03-21 11:41 | Outpatient (BNV) | payer MEDICARE, MEDICAID, SELFPAY | PROVIDERS: Admitting Provider Student in an Organized Health Care Education/Training Program; Emergency Provider Emergency Medicine; PCP Internal Medicine; Visit Provider Internal Medicine Cardiovascular Disease | DX: R94.31 Abnormal electrocardiogram [ECG] [EKG] (principal) | CPT/HCPCS: 93010 ==

== ENCOUNTER 2024-03-21 13:44 | Outpatient (BNV) | payer MEDICARE, MEDICAID, SELFPAY | END 2024-03-22 07:00 | PROVIDERS: Admitting Provider Student in an Organized Health Care Education/Training Program; Emergency Provider Emergency Medicine; PCP Internal Medicine; Visit Provider Internal Medicine Cardiovascular Disease | DX: I35.2 Nonrheumatic aortic (valve) stenosis with insufficiency (principal); I35.8 Other nonrheumatic aortic valve disorders; I34.81 Nonrheumatic mitral (valve) annulus calcification; I36.1 Nonrheumatic tricuspid (valve) insufficiency | CPT/HCPCS: 93306 ==

== ENCOUNTER → 2024-03-21 13:44 | Outpatient (BNV) | payer MEDICARE, MEDICAID, SELFPAY | PROVIDERS: Admitting Provider Student in an Organized Health Care Education/Training Program; Emergency Provider Emergency Medicine; PCP Internal Medicine; Visit Provider Student in an Organized Health Care Education/Training Program | DX: R47.1 Dysarthria and anarthria (principal); R53.1 Weakness | CPT/HCPCS: 99222; 99232; 99239; 99499 ==

== ENCOUNTER → 2024-03-21 13:44 | Outpatient (BNV) | payer MEDICARE, MEDICAID, SELFPAY | PROVIDERS: Admitting Provider Student in an Organized Health Care Education/Training Program; Emergency Provider Emergency Medicine; PCP Internal Medicine; Visit Provider Psychiatry & Neurology Neurology | DX: I63.411 Cerebral infarction due to embolism of right middle cerebral artery (principal) | CPT/HCPCS: 99222 ==

== ENCOUNTER 2024-03-27 09:06 | Emergency (ER) | payer MEDICARE, MEDICAID, SELFPAY ==
--- NOTE | ~2024-03-27 | CT_ITS ---
EXAMINATION: CT HEAD WITHOUT CONTRAST (STROKE PROTOCOL) CLINICAL INFORMATION: Stroke protocol. COMPARISON: 03/21/2024 TECHNIQUE: Contiguous axial imaging was performed from the skull base to vertex without intravenous administration of contrast. This CT examination was performed using dose optimization techniques as appropriate, variously including the following: *Automated exposure control *Adjustment of mA and/or kV according to patient size (this includes techniques or standardized protocols for targeted exams where dose is matched to indication/reason for exam; i.e. extremities or head) *Use of iterative reconstruction technique DLP: 698 mGy-cm FINDINGS: Chronic underlying atrophy and periventricular white matter changes. No evolving infarct, mass lesion, mass effect, midline shift, hemorrhage or extra-axial fluid collections. Lens extractions have been performed. Minimal left sphenoid sinus disease. Remaining sinuses and mastoids are clear. Bony structures are intact. Soft tissues are unremarkable. CT/CT head for stroke IMPRESSION: No acute intracranial pathology. This critical result was discussed with Krystina Carreon at 9:23 hours on 03/27 by Ruma Vizcarra. It was ascertained that the content and urgency of the report was understood at the time of direct communication.
--- NOTE | ~2024-03-27 | XR_ITS ---
EXAMINATION: XR CHEST CLINICAL INFORMATION: Stroke 03/17/1961 TECHNIQUE: Frontal view of the chest was obtained. FINDINGS: Heart and mediastinum within normal limits. Vague nodular opacities left apex and left upper lung. No vascular congestion or consolidations are effusions. Mild left base atelectasis. Degenerative changes bilateral shoulders. XR/XR chest 1V IMPRESSION: Nodular opacities left upper lobe. Consider short-term radiographic follow-up. If persistent, CT should be obtained.
--- NOTE | ~2024-03-27 | CT_ITS ---
EXAMINATION: CT ANGIOGRAM HEAD CT ANGIOGRAM NECK CLINICAL INFORMATION: Stroke. COMPARISON: Brain MRI from 03/21/2024. CT head from 03/27/2024. CTA Head and Neck from 03/21/2024. TECHNIQUE: Initial noncontrast wood shingle roofer imaging of the head and neck was performed. Comparison is made with noncontrast head CT from earlier today. Test bolus sequences followed by intravenous administration 70 mL of Omnipaque 350. Helical imaging was performed in the axial plane from the aortic arch to the skull vertex. Delayed postcontrast imaging of the head was also performed. The data was processed at the environmental health technologist's workstation for generation of MIP sequences. Angled MIPs and volume rendered reformatted images were also generated at an offline 3D workstation. Stenoses are assessed in accordance with NASCET criteria unless otherwise indicated. This CT examination was performed using dose optimization techniques as appropriate, variously including the following: *Automated exposure control. *Adjustment of mA and/or kV according to patient size (this includes techniques or standardized protocols for targeted exams where dose is matched to indication/reason for exam; i.e. extremities or head). *Use of iterative reconstruction technique. DLP: 1445 mGy-cm FINDINGS: CT Head: There is no evidence of acute intracranial hemorrhage or edematous territorial infarction. Chronic lacunar infarct of the left thalamus. No new loss of davison-white matter differentiation. Confluent hypoattenuation in the periventricular and deep white matter. Proportional prominence of the ventricles and sulcal spaces without evidence of obstructive hydrocephalus. No abnormal mass effect or midline shift. No extra-axial fluid collections. No pathologic intra-axial enhancement. No acute soft tissue or osseous abnormalities. Mild mucosal thickening of the paranasal sinuses. The mastoid air cells and middle ear cavities are clear. Bilateral lens extractions. CT Neck: The thyroid gland and remaining cervical soft tissues are within normal limits. Straightening of the normal cervical lordosis. Mild degenerative stepwise anterolisthesis of C2-C5. Advanced degenerative disc disease from C4-T2. Facet and uncovertebral joint arthropathy leads to osseous encroachment on the neural foramina from C4-C7. CT Upper Chest: The visualized lung apices and upper mediastinum are within normal limits. Neck CTA: Aortic Arch: Normal contour and caliber with moderate calcific atherosclerotic disease. Classic 3 vessel branching pattern of the aortic arch. Great Vessel Origins: No significant stenosis of the branch origins. Right Common Carotid Artery: No focal stenosis or occlusion. Cervical Right Internal Carotid Artery: Mild calcific atherosclerotic disease of the carotid bulb and proximal internal carotid artery without flow-limiting stenosis. Retropharyngeal course. Left Common Carotid Artery: No focal stenosis or occlusion. Cervical Left Internal Carotid Artery: Mild calcific atherosclerotic disease of the carotid bulb and proximal internal carotid artery without flow-limiting stenosis. Cervical Right Vertebral Artery: Co-dominant. No focal stenosis or occlusion. Cervical Left Vertebral Artery: Co-dominant. No focal stenosis or occlusion. Brain CTA: Intracranial Internal Carotid Arteries: Calcific atherosclerotic disease of the intracranial internal carotid arteries without occlusion or flow-limiting stenosis. Right Anterior Cerebral Artery: Normal A1 segment. Normal opacification of the distal AYAAN segments. Left Anterior Cerebral Artery: Normal A1 segment. Normal opacification of the distal AYAAN segments. Anterior Communicating Artery: Normal. Right Middle Cerebral Artery: Normal M1 segment of the MCA without focal stenosis or occlusion. Normal arborization of the distal segments. Left Middle Cerebral Artery: Normal M1 segment of the MCA without focal stenosis or occlusion. Normal arborization of the distal segments. Right Vertebral Artery: Normal V4 segment. Normal opacification of the proximal segments of the posterior inferior cerebellar artery. Left Vertebral Artery: Normal V4 segment. Normal opacification of the proximal segments of the posterior inferior cerebellar artery. Basilar Artery: Normal without focal stenosis or occlusion. Normal appearance of the proximal superior cerebellar arteries. Right Posterior Cerebral Artery: Normal P1 segment. Normal opacification of the distal PALEONTOLOGY TEACHER segments. Left Posterior Cerebral Artery: Normal P1 segment. Normal opacification of the distal PALEONTOLOGY TEACHER segments. Normal opacification of the superior sagittal, straight, transverse, and sigmoid sinuses. CT/CT angio head neck stroke IMPRESSION: 1. No evidence of acute intracranial hemorrhage or edematous territorial infarction. Extensive underlying microangiopathy and generalized cerebral volume loss. Chronic lacunar infarct of the left thalamus. 2. CTA of the head and neck without proximal occlusion or flow-limiting stenosis. This critical result was discussed with Dr. Carreon at 10:04 on 03/27/2024 and it was ascertained that the content and urgency of the report was understood at the time of direct communication.
--- NOTE | ~2024-03-27 | MR_ITS ---
EXAMINATION: MR BRAIN WITHOUT CONTRAST CLINICAL INFORMATION: Stroke. COMPARISON: CTA head and neck from 03/27/2024. Brain MRI from 03/21/2024. TECHNIQUE: MRI of the brain was obtained using routine sequences without contrast. FINDINGS: Cortical restricted diffusion in the right precentral gyrus, similar in distribution compared to 03/21/2024. Associated T2 FLAIR hyperintensity. No evidence of hemorrhagic transformation. No additional restricted diffusion. Punctate focus of susceptibility artifact in the left occipital lobe consistent with petechial microhemorrhages. No evidence of acute hemorrhagic products on heme-sensitive imaging. Chronic region of encephalomalacia in the left post central gyrus. Confluent periventricular, deep white matter, and brainstem T2 FLAIR hyperintensity consistent with underlying microangiopathy. Proportional prominence of the ventricles and sulcal spaces without evidence of obstructive hydrocephalus. No abnormal mass effect. No midline shift. Normal appearance of the pituitary gland. Normal positioning of the cerebellar tonsils. Normal arterial and venous vascular flow voids are present. Normal, homogeneous marrow signal. Mild mucosal thickening of the paranasal sinuses. Small right-sided mastoid effusion. No signal anomalies within the left sided mastoid. Bilateral lens extractions. MR/MR head/brain wo con IMPRESSION: 1. Continued evolution of an acute to subacute cortical infarct of the right precentral gyrus. No evidence of hemorrhagic conversion. No new territories of acute infarction compared to exam from 03/21/2024. 2. Chronic region of encephalomalacia in the left post central gyrus. Extensive underlying microangiopathy and generalized cerebral volume loss.
--- NOTE | 2024-03-27 09:11 | ECG_ITS ---
Test Reason : STROKE PROTOCOL Blood Pressure : / mmHG Vent. Rate : 081 BPM Atrial Rate : 081 BPM P-R Int : 150 ms QRS Dur : 080 ms QT Int : 396 ms P-R-T Axes : 061 008 072 degrees QTc Int : 460 ms Normal sinus rhythm Septal infarct , age undetermined Abnormal ECG When compared with ECG of 21-MAR-2024 11:55, Septal infarct is now Present - could be related to body habitus/lead placement Referred By: Krystina Carreon Electronically Signed By:GRETA LYNN
[2024-03-27 09:15] VITALS: BP 121/74; PULSE 72; O2SAT 96; BMI 38.1
--- NOTE | 2024-03-27 09:15 | ED_ITS ---
HPI - Neuro Symptoms/Deficit General Chief Complaint: Stroke Stated Complaint: STROKE ALERT:DIFF TALKING,R WEAK,SLURR,ON PLAVIX Time Seen by Provider: 03/27/24 09:11 Source: patient, EMS and old records reviewed Mode of arrival: EMS Limitations: no limitations History of Present Illness ED Provider: DR. Carreon HPI Narrative: 88-year-old female with pertinent history hypothyroidism, HTN, GERD, mood disorder, hyperlipidemia presented to our ED by EMS from rehab after was found by the nursing staff having slurred speech and right-sided weakness symptoms started 1 hour before presentation as per EMS, patient had similar presentation on 03/21/2024 patient was not a candidate for TNK was admitted after was given aspirin. Patient was admitted to the hospital for 4 days and discharged to [facility] rehab on Plavix 75 mg and amlodipine to control blood pressure. Patient presented today with slurred speech, mild confusion, mild right-sided weakness. Related Data Home Medications ?Medication ?Instructions ?Recorded ?Confirmed atorvastatin 10 mg tablet 10 mg PO DAILY 05/20/20 03/27/24 levothyroxine 50 mcg tablet 50 mcg PO DAILY 05/20/20 03/27/24 omeprazole 20 mg capsule,delayed 20 mg PO DAILY 05/20/20 03/27/24 release cyanocobalamin (vitamin B-12) 1,000 mcg PO DAILY 12/18/21 03/27/24 1,000 mcg tablet acetaminophen 500 mg tablet 1,000 mg PO DAILY PRN Pain/Fever 03/21/24 03/27/24 vibegron 75 mg tablet (Gemtesa) 75 mg PO DAILY 03/21/24 03/27/24 Previous Rx's ?Medication ?Instructions ?Recorded amlodipine 5 mg tablet 5 mg PO DAILY #1 tab 03/24/24 clopidogrel 75 mg tablet 75 mg PO DAILY #1 tab 03/24/24 losartan 50 mg tablet 50 mg PO DAILY #1 tab 03/24/24 Allergies Allergy/AdvReac Type Severity Reaction Status Date / Time tramadol Allergy Rash Verified 03/27/24 09:16 Review of Systems 2 Review of Systems: All other systems are reviewed and are negative Constitutional: Reports as per HPI and Reports no additional constitutional complaints Eyes: Reports as per HPI and Reports no additional eye complaints Reports system reviewed and no additional complaints, except as documented Cardiovascular: Reports as per HPI and Reports no additional cardiovascular complaints Respiratory: Reports as per HPI and Reports no additional respiratory complaints Gastrointestinal: Reports as per HPI and Reports no additional gastrointestinal complaints Genitourinary: Reports no additional female genitourinary complaints Musculoskeletal: Reports no additional musculoskeletal complaints Skin/Breast: Reports system reviewed and no additional complaints, except as docu Psychiatric: Reports no additional psychiatric complaints Endocrine: Reports no additional endocrine complaints Hematologic/Lymphatic: Reports no additional hematologic/lymphatic complaints Allergic/Immunologic: Reports no additional allergic/immunologic complaints Reports system reviewed and no additional complaints, except as documented and Reports Abnormal speech present [facility] Past Medical History Medical History CVA (cerebral vascular accident) Hypoactive thyroid High cholesterol High blood pressure Acid reflux Social History Social History Household Members: Children Household Members Other:: daughter Housing: House Do you presently have visiting nurse or other home services: No Alcohol intake: former Patient Tobacco Use Status: Former Tobacco user Tobacco use type: Cigarette Years Smoked: 15 Smoked in Last 30 Days: No Second Hand Smoke Exposure: No Use of substances other than those prescribed or required for medical reasons: No Advance Directives: Yes Advance Directives on File: Yes Advance Directives Date on File: 12/18/21 Do you have a plan to hurt others: No Plan service: No Current occupational status: retired Current occupation: rt hand Physical Exam 2 Vital Signs: Vital Signs: Last Vital Signs Temp 98.4 F 03/27/24 13:42 Pulse 78 03/27/24 13:42 Resp 18 03/27/24 13:42 BP 165/72 H 03/27/24 13:42 Pulse Ox 95 03/27/24 13:42 O2 Del Method Room Air 03/27/24 13:42 BMI result Body Mass Index 38.1 Vital signs have been reviewed and appear to be correct. Blood pressure elevated. Heart rate normal. Respiratory rate normal. Temperature normal. Oxygen saturation normal. Appearance: Alert. Oriented X3. No acute distress. Head: Normal external exam. Normocephalic. Atraumatic. No Boss signs noted. No raccoon eyes noted Eyes: PERRLA. EOMI. Conjunctiva and sclera normal. Eyelids normal. ENT: TM's Normal. Pharynx normal. Uvula midline. Moist mucous membranes. No trismus noted. No drooling noted. No muffled voice noted. Neck: Normal inspection. Neck supple. FROM. No adenopathy. Thyroid Normal. No meningeal signs. No neck mass noted. CVS: Normal heart rate and rhythm. Heart sound normal. No murmurs noted. Pulses normal throughout. Respiratory: No respiratory distress. Painless inspiration. Breath sounds normal. No wheezes/rales/rhonchi noted. Chest nontender. No accessory muscle usage noted or decreased air movement noted. Abdomen: Soft and nontender. Bowel sounds normal in all 4 quadrants. No distention noted. No organomegaly noted. No visible injury noted. Back: No CVA tenderness. Full range of motion noted. Skin: Skin warm and dry. Normal skin color. Normal skin turgor. No rashes/lesions/lacerations noted. Extremities: No lower extremity edema. Extremities exhibit normal range of motion. Extremities nontender. Neuro: Please refer to NIH score Oriented X 3. Cranial nerve exam: II-XII are grossly intact Mild right upper extremity weakness with mild pronator drift, No sensory deficit. Reflexes normal. Course Reevaluation(s) Reevaluation #1: Discussed with Dr. Johns, patient is not a candidate for TNK, continue with antiplatelet admit for repeat MRI. Time: 09:32 Reevaluation #2: Daughter is with the patient at the bedside, patient's speech is better and back to baseline. Time: 11:56 Reevaluation #3: MRI showed continued evolving acute to subacute cortical infarction of the right very central gyrus, no new territory of acute infarction. The above findings were discussed with Dr. Johns, patient can go back to rehab since today symptoms is not going to make difference in her regular management patient on double antiplatelet agent. Daughter wants the patient to go back to same rehab facility and she does not want her to be admitted to the hospital. Time: 15:12 Medications Administered Discontinued Medications Generic Name Dose Route Start Last Admin Trade Name Freq PRN Reason Stop Dose Admin Sodium Chloride 1,000 mls @ 999 mls/hr 03/27/24 09:59 03/27/24 12:27 Ns IV 03/27/24 10:59 Infused .Q1H1M ONE Infusion Iohexol 100 ml 03/27/24 09:32 03/27/24 09:33 Iohexol 350 Mg/Ml 100 Ml Infus..Btl IV 03/27/24 09:33 70 ml ONCE ONE Administration Medical Decision Making Differential Diagnosis Differential Diagnoses: The differential diagnosis associated with the presentation includes (Ischemic stroke, hemorrhagic stroke, electrolyte derangement, severe anemia, TIA.) Admission/Observation Consideration of admission/observation: Escalation of care including admission/observation considered Consult Healthcare Provider Management of the patient was discussed with: Hospitalist (Dr. iDxon) and Supervisor [facility] (Dr. Johns) Lab Data MDM Lab Attestation statement: I reviewed the patient's lab results. 03/27/24 10:03 03/27/24 10:03 Labs: Lab Results 03/27/24 03/27/24 Range/Units 09:12 10:03 WBC 6.2 (4.8-10.8) X10*3/uL RBC 3.95 L (4.20-5.50) X10*6/uL Hgb 12.8 (12.0-16.0) g/dl Hct 39.5 (37.0-47.0) % MCV 100.0 H (80.0-98.0) fL MCH 32.4 (27.0-33.0) pg MCHC 32.4 (31.0-35.0) g/dl RDW 12.6 (11.0-16.0) % Plt Count 164 (160-400) X10*3/uL MPV 9.8 (9.4-12.3) fL Immature Gran % (Auto) 0.3 (0.0-0.4) % Neut % (Auto) 65.6 (45-73) % Lymph % (Auto) 17.9 L (20-40) % [place]ocking % (Auto) 10.2 (2-11) % Eos % (Auto) 5.5 H (0-4) % Baso % (Auto) 0.5 (0-2) % Lymph # (Auto) 1.1 L (1.2-4.9) X10*3/uL [place] # (Auto) 0.6 (0.1-1.2) X10*3/uL Eos # (Auto) 0.3 (0.0-0.4) X10*3/uL Baso # (Auto) 0.0 (0.0-0.2) X10*3/uL Abs Immat Gran (auto) 0.02 (0.00-0.03) X10*3/uL Absolute Neuts (auto) 4.0 (2.0-8.3) x10*3/uL Absolute Nucleated RBC 0.000 (0.0-0.012) X10*3/uL Nucleated RBC % (auto) 0.0 (0.0-0.2) /100WBC PT 11.0 L (11.1-13.3) SEC INR 0.9 (0.9-1.1) APTT 32.6 (26.0-36.8) SEC Sodium 139 (135-145) mmol/L Potassium 4.4 (3.3-5.1) mmol/L Chloride 107 (96-108) mmol/L Carbon Dioxide 26 (22-29) mmol/L Anion Gap 10 L (12-20) BUN 30 H (9-16) mg/dL Creatinine 1.12 (0.5-1.4) mg/dL Estim Creat Clear Calc 33.7 Estimated GFR 46 POC Glucose 90 (60-115) mg/dL Random Glucose 98 (60-115) mg/dL Calcium 8.8 (8.4-10.2) mg/dL Troponin I High Sens 19.1 H (<3.5-17.0) ng/L Triglycerides 94 (<150) mg/dL Cholesterol 154 (<200) mg/dL LDL Cholesterol, Calc 74 (<100) mg/dL HDL Cholesterol 62 (>40) mg/dL Independent Interpretation I performed an independent interpretation of an: CT Scan (Head/CTA head and neck: 1. No evidence of acute intracranial hemorrhage or edematous territorial infarction. Extensive underlying microangiopathy and generalized cerebral volume loss. Chronic lacunar infarct of the left thalamus. 2. CTA of the head and neck without proximal occlusion or flow-limit) Interpretation: MRI of the brain:1. Continued evolution of an acute to subacute cortical infarct of the right precentral gyrus. No evidence of hemorrhagic conversion. No new territories of acute infarction compared to exam from 03/21/2024. 2. Chronic region of encephalomalacia in the left post central gyrus. Extensive underlying microangiopathy and generalized cerebral volume loss. Radiology Impression Discussion of test interpretation with radiology: I have reviewed the radiologist's reading. NIH Stroke Scale Internal: Initial- Upon Arrival Time: 09:21 Level of Consciousness: Alert Level of Consciousness Questions: Answers both questions correctly Level of Consciousness Commands: Performs both tasks correctly Best Gaze: Normal Visual: No visual loss Facial Palsy: Normal Motor Arm (Right): Drift Motor Arm (Left): No drift Motor Leg (Right): Drift Motor Leg (Left): No drift Limb Ataxia: Absent Sensory: Normal Best Language: Mild to moderate aphasia Dysarthia: Normal Extinction and Inattention: No abnormality Score: 3 Discharge Plan Discharge Clinical Impression: Cerebrovascular accident Patient Disposition: er SNF Instructions: Stroke (DC) Prescriptions: No Action cyanocobalamin (vitamin B-12) 1,000 mcg Tablet 1,000 mcg PO DAILY Gemtesa 75 mg tablet 75 mg PO DAILY acetaminophen 500 mg Tablet 1,000 mg PO DAILY PRN (Reason: Pain/Fever) losartan 50 mg Tablet 50 mg PO DAILY Qty: 1 0RF Protocol: Hold for SBP< HOLD for SBP < : 90 clopidogrel 75 mg Tablet 75 mg PO DAILY Qty: 1 0RF amlodipine 5 mg Tablet 5 mg PO DAILY Qty: 1 0RF Protocol: Hold for SBP< HOLD for SBP < : 90 atorvastatin 10 mg tablet 10 mg PO DAILY omeprazole 20 mg capsule,delayed release(DR/EC) 20 mg PO DAILY levothyroxine 50 mcg tablet 50 mcg PO DAILY Print Language: Puerto Rican
[2024-03-27 09:20] LABS: Glucose, Whole Blood 90 mg/dL (60-115)
[2024-03-27] MEDS: iohexoL 350 MG/ML 100 ML INFUS..BTL IV (09:33)
[2024-03-27 09:47] VITALS: BP 160/67; PULSE 87; RESP 18; TEMP 36.8; O2SAT 94
--- NOTE | 2024-03-27 10:03 | PC.NURSE ---
Patient arrived via ems from [facility] for reports of slurred speech and right sided weakness. Upon arrival patient alert and oriented, without slurred speech. Hanf grasps strong and equal, able to raise both legs equally. Denies headache, sob, or chest pain. daughter at bedside stating her mom appears to be at her baseline. Changed into hospital attire, manuel.
[2024-03-27 10:08] LABS: MANUAL DIFF FLAG NO
[2024-03-27 10:09] LABS: Basophils Percent Auto 0.5 % (0-2); Eosinophils Absolute Auto 0.3 X10*3/uL (0.0-0.4); Eosinophils Percent Auto 5.5 % (0-4); Hematocrit 39.5 % (37.0-47.0); Hemoglobin 12.8 g/dl (12.0-16.0); Imm Gran Abs Auto 0.02 X10*3/uL (0.00-0.03); Imm Gran Pct Auto 0.3 % (0.0-0.4); Lymphocytes Absolute Auto 1.1 X10*3/uL (1.2-4.9); Lymphocytes Percent Auto 17.9 % (20-40); Mean Corpuscular HGB Conc 32.4 g/dl (31.0-35.0); Mean Corpuscular Hemoglobin 32.4 pg (27.0-33.0); Mean Platelet Volume 9.8 fL (9.4-12.3); Monocytes Absolute Auto 0.6 X10*3/uL (0.1-1.2); Monocytes Percent Auto 10.2 % (2-11); Neutrophils Percent Auto 65.6 % (45-73); Platelet Count 164 X10*3/uL (160-400); Red Blood Count 3.95 X10*6/uL (4.20-5.50); Red Cell Distribution Width 12.6 % (11.0-16.0); White Blood Count 6.2 X10*3/uL (4.8-10.8)
[2024-03-27 10:18] LABS: INTERNATIONAL NORM RATIO 0.9 (0.9-1.1)
[2024-03-27] MEDS: 0.9 % Sodium Chloride 1,000 ML 999 ML IV (10:18)
[2024-03-27 10:21] LABS: Partial Thromboplastin Time 32.6 SEC (26.0-36.8)
--- NOTE | 2024-03-27 10:40 | MHC.STROKE ---
Met with patient and family. Pt awake, alert and answering questions appropriately. Family member stating that speech is normal for the patient and doesn't appreciate any worsening/slurring of patient's speech Pt states that she was eating breakfast and felt weak. She reports the staff said my face looked funny . Dr. Carreon at bedside. Plan is for admission and MRI. Pt/family aware and agreeable to plan. Stroke Education provided along with risk factor discussion. Declined stroke pamphlet as patient was just discharged on Tuesday and has one from her last visit. Will continue to assist as needed.
--- NOTE | 2024-03-27 10:41 | PC.NURSE ---
MRi screening form compelted with patient and daughter, faxed to MRI
[2024-03-27 10:42] LABS: Troponin-I High Sensitivity 19.1 ng/L (<3.5-17.0)
[2024-03-27 10:45] LABS: Anion Gap 10 (12-20); Blood Urea Nitrogen 30 mg/dL (9-16); Calcium 8.8 mg/dL (8.4-10.2); Carbon Dioxide 26 mmol/L (22-29); Chloride 107 mmol/L (96-108); Cholesterol 154 mg/dL (<200); Creatinine Clr Calc Pharmacy 33.7; Estimated Glomerular Filt Rate 46; Glucose Random 98 mg/dL (60-115); HDL Cholesterol 62 mg/dL (>40); LDL Cholesterol Calculated 74 mg/dL (<100); Potassium 4.4 mmol/L (3.3-5.1); Sodium 139 mmol/L (135-145); Triglycerides 94 mg/dL (<150)
[2024-03-27 10:52] LABS: Stroke Lab Use COMPLETE
--- NOTE | 2024-03-27 12:28 | PC.NURSE ---
Brought to MRI by transport
--- NOTE | 2024-03-27 12:48 | PHA.MEDREC ---
Addendum entered by Ayush Medina kim 03/27/24 14:21: med rec reviewed Original Note: Pharmacy Consult ? Medication Reconciliation Pharmacy has completed the medication reconciliation. Confimed medications with patient janet Matos. Patient daughter confirmed no changes to her meds and from her Dicharge on 03/25 she got Clopidogrel 75mg, Amlodipine 5mg and Losartan 50mg that the daughter said her mom had started. They were not sure when she last took her medicine.
--- NOTE | 2024-03-27 13:39 | PC.NURSE ---
Returned from MRI, speech clear, denies pain
[2024-03-27 13:42] VITALS: BP 165/72; PULSE 78; RESP 18; TEMP 36.9; O2SAT 95
--- NOTE | 2024-03-27 15:26 | PC.NURSE ---
Daughter updated on MRI results and plan to send back to [facility]
--- NOTE | 2024-03-27 15:29 | PC.NURSE ---
Report given to Gabino at [facility], aware of patients MRI results and return this evening
[2024-03-27 15:44] LABS: Prothrombin Time Whole Bld POC 12.3 sec (11.1-13.5)
[2024-03-27 16:51] VITALS: BP 165/72; PULSE 78; RESP 18; TEMP 36.9; O2SAT 95
== END 2024-03-27 16:51 | disposition skilled nursing facility (03) ==
PROVIDERS: Emergency Provider Emergency Medicine; PCP Internal Medicine
DX: I63.9 Cerebral infarction, unspecified (principal); R29.703 NIHSS score 3; G81.91 Hemiplegia, unspecified affecting right dominant side; R47.01 Aphasia; R47.81 Slurred speech; I10 Essential (primary) hypertension; E78.5 Hyperlipidemia, unspecified; Z79.02 Long term (current) use of antithrombotics/antiplatelets; Z79.899 Other long term (current) drug therapy; Z87.891 Personal history of nicotine dependence
CPT/HCPCS: 36415; 70450; 70496; 70498; 70551; 71045; 80048; 80061; 82947; 84484; 85025; 85610; 85730; 93005; 96360; 96361; 99285; Q9967

== ENCOUNTER → 2024-03-27 09:11 | Outpatient (BNV) | payer MEDICARE, MEDICAID, SELFPAY | PROVIDERS: Emergency Provider Emergency Medicine; PCP Internal Medicine; Visit Provider Internal Medicine | DX: R94.31 Abnormal electrocardiogram [ECG] [EKG] (principal) | CPT/HCPCS: 93010 ==